=== PATIENT | male | born 1930 | race Caucasian/White ===

== ENCOUNTER 2016-10-02 10:07 | Outpatient (CLI) | payer MEDICARE, BC | END 2016-10-02 10:08 | disposition home or self-care (01) | DX: Z51.81 Encounter for therapeutic drug level monitoring (principal); E78.5 Hyperlipidemia, unspecified ==

== ENCOUNTER 2017-10-06 08:00 | Outpatient (CLI) | payer MEDICARE, BC ==
[2017-10-06 12:59] LABS: ALBUMIN 3.7 g/dL (3.2-5.5); ALBUMIN/GLOBULIN RATIO 1.4 (1.0-2.2); ALKALINE PHOSPHATASE 74 IU/L (42-121); ALT ALANINE AMINOTRANSFERASE 15 IU/L (10-60); AST ASPARTATE AMINOTRANSFERASE 15 IU/L (10-42); BILIRUBIN,TOTAL 0.7 mg/dL (0.2-1.0); BUN - BLOOD UREA NITROGEN 12 mg/dL (6-20); CALCIUM 8.7 mg/dL (8.5-10.3); CARBON DIOXIDE - CO2 27 mmol/L (21-32); CHLORIDE 106 mmol/L (101-111); CHOL/HDL RATIO 3.9 (<5.0); CHOLESTEROL 163 mg/dL; CREATININE 0.9 mg/dL (0.6-1.2); GFR - MDRD 80 (>89); GLUCOSE 100 mg/dL (70-100); HDL CHOLESTEROL 42 mg/dL; LDL CHOLESTEROL,CALCULATED 93 mg/dL; LDL/HDL RATIO 2.2 (<3.6); SODIUM 138 mmol/L (135-145); TOTAL PROTEIN 6.4 g/dL (6.7-8.2); VLDL CHOLESTEROL 28 mg/dL
[2017-10-06 13:00] LABS: BASOPHILS # (AUTO) 0.1 10^3/uL (0.0-0.1); BASOPHILS % (AUTO) 1.4 %; EOSINOPHILS # (AUTO) 0.1 10^3/uL (0.0-0.7); EOSINOPHILS % (AUTO) 0.7 %; LYMPHOCYTES # (AUTO) 2.8 10^3/uL (1.5-3.5); LYMPHOCYTES % (AUTO) 38.2 %; MEAN CORPUSCULAR HEMOGLOBIN 29.7 pg (27.0-31.0); MEAN CORPUSCULAR HGB CONC 31.8 g/dL (32.0-36.0); MEAN CORPUSCULAR VOLUME 93.6 fL (80.0-94.0); MEAN PLATELET VOLUME 9.5 fL (7.4-11.4); MONOCYTES # (AUTO) 0.2 10^3/uL (0.0-1.0); MONOCYTES % (AUTO) 2.6 %; NEUTROPHILS # (AUTO) 4.2 10^3/uL (1.5-6.6); NEUTROPHILS % (AUTO) 57.1 %; PLT - PLATELET COUNT 213 10^3/uL (130-450); RED BLOOD COUNT 5.04 10^6/uL (4.70-6.10); RED CELL DISTRIBUTION WIDTH 14.4 % (12.0-15.0); WHITE BLOOD COUNT 7.4 x10^3/uL (4.8-10.8)
== END 2017-10-06 08:01 | disposition home or self-care (01) ==
LOC: LAB.WCP 08:00
PROVIDERS: ATTEND Family Medicine
DX: K27.9 Peptic ulcer, site unspecified, unspecified as acute or chronic, without hemorrhage or perforation (principal); I10 Essential (primary) hypertension
CPT/HCPCS: 36415; 80053; 80061; 83721; 85025

== ENCOUNTER 2017-10-28 10:44 | Outpatient (CLI) | payer MEDICARE, BC ==
[~2017-10-28 10:44] MED LIST: REGADENOSON 0.4 MG/5 ML SYRINGE IVP ONE
[2017-10-28] MEDS ORDERED: REGADENOSON 0.4 MG/5 ML SYRINGE IVP ONE (14:56)
[2017-10-28 17:23] VITALS: BP 128/70
--- NOTE | 2017-10-28 18:21 | CARDIAC PROCEDURE NOTE ---
DATE OF SERVICE: 10/28/2017 Physician: CARMEN Wood DATE OF SERVICE: 10/28/2017. PRIMARY CARE PHYSICIAN: Dr. 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 CARDIAC RISK FACTORS: Include age, hypertension, hyperlipidemia and smoker. No prior cardiac procedures. CLINICAL HISTORY: An 86-year-old male without known coronary artery disease. INITIAL RESTING VITAL SIGNS: BP 128/70, heart rate 84, height 68 inches, weight 172, BMI 26.2. PROCEDURE AND FINDINGS: The patient identity and date verified, consent signed. Pharmacologic medication check. Pharmacologic stress testing was performed with Lexiscan at a dose of 0.4 mg over 10 seconds. The heart rate increased to 114 beats per minute, from the infusion. The patient developed a mild sensation of tightened breathing related to the infusion and it resolved spontaneously. The resting ECG demonstrated normal sinus rhythm with a left bundle branch block and first-degree AV block. Unable to assess left bundle branch block for ECG changes. FINAL IMPRESSION: 1. Nondiagnostic electrocardiogram for ischemia in the setting of vasodilator stress. 2. Nondiagnostic stress test for angina. 3. Await myocardial perfusion report. TD: 10/28/2017 18:19 MTDAlesia
--- NOTE | 2017-10-29 10:49 | Nuclear Medicine Report ---
EXAM: NUCLEAR MEDICINE MYOCARDIAL PERFUSION STRESS AND REST EXAM DATE: 10/28/2017 03:00 PM. CLINICAL HISTORY: Left bundle branch block. COMPARISON: None. TECHNIQUE: Patient given 10.7 mCi technetium 99m sestamibi IV for the rest portion of the study. Non- gated cardiac SPECT scintigraphy performed with multiplanar reformats. After an appropriate delay, patient given 0.4 mg Lexiscan IV for pharmacologic stress. Next, patient given 41.3 mCi technetium 99m sestamibi IV. Cardiac gated SPECT scintigraphy performed with multiplan ar reformats, wall motion analysis, and left ventricular ejection fraction estimation. FINDINGS: There is a large focus of moderately decreased activity in the inferior wall, extending inferoseptal and from apex to base, fixed on stress and rest. Moderate focus of moderate decreased activity in the anterior septal region from apex to mid ventricl e. Moderate decreased activity of the apex, fixed. No reversible stress-related perfusion defects are seen. Diffuse moderate to severe hypokinesis. Left ventricular ejection fraction estimated at 24%. IMPRESSION: 1. Large fixed defect inferior wall involving apex and moderate fixed defect in the anterior septal r egion. Differential includes infarct versus hibernating myocardium. 2. Left ventricular ejection fraction estimated at 24%. [facility] Referring Provider Line: [phone] SITE ID: [id number]
== END 2017-10-28 10:45 | disposition home or self-care (01) ==
LOC: DI 10:44
PROVIDERS: ATTEND Family Medicine
DX: I44.7 Left bundle-branch block, unspecified (principal); R94.39 Abnormal result of other cardiovascular function study; I10 Essential (primary) hypertension; E78.5 Hyperlipidemia, unspecified; F17.200 Nicotine dependence, unspecified, uncomplicated
CPT/HCPCS: 78452; 93017; A9500; J2785

== ENCOUNTER 2017-12-09 03:20 | Outpatient (CLI) | payer MEDICARE, BC | END 2017-12-09 03:21 | disposition critical access hospital (66) | LOC: EMS 03:20 | PROVIDERS: ATTEND Surgery | DX: R06.00 Dyspnea, unspecified (principal); R07.9 Chest pain, unspecified | CPT/HCPCS: A0425; A0427 ==

== ENCOUNTER 2017-12-09 03:35 | Inpatient (IN) | payer MEDICARE, BC ==
[2017-12-09] MEDS ORDERED: FUROSEMIDE 40 MG/4 ML VIAL IVP STA (03:57)
[2017-12-09 03:59] LABS: VBG BASE EXCESS -6.5 mmol/L (-2 - +2); VBG PH 7.373 (7.31-7.41); VBG PO2 178.5 mmHg (25-47)
[2017-12-09 04:04] LABS: BASOPHILS # (AUTO) 0.2 10^3/uL (0.0-0.1); BASOPHILS % (AUTO) 1.2 %; EOSINOPHILS # (AUTO) 0.1 10^3/uL (0.0-0.7); EOSINOPHILS % (AUTO) 0.7 %; HGB - HEMOGLOBIN 16.6 g/dL (14.0-18.0); LYMPHOCYTES # (AUTO) 4.9 10^3/uL (1.5-3.5); LYMPHOCYTES % (AUTO) 28.9 %; MEAN CORPUSCULAR HEMOGLOBIN 30.4 pg (27.0-31.0); MEAN CORPUSCULAR HGB CONC 33.6 g/dL (32.0-36.0); MEAN CORPUSCULAR VOLUME 90.4 fL (80.0-94.0); MEAN PLATELET VOLUME 8.3 fL (7.4-11.4); MONOCYTES # (AUTO) 0.8 10^3/uL (0.0-1.0); MONOCYTES % (AUTO) 4.7 %; NEUTROPHILS # (AUTO) 10.9 10^3/uL (1.5-6.6); NEUTROPHILS % (AUTO) 64.5 %; PLT - PLATELET COUNT 243 10^3/uL (130-450); RED BLOOD COUNT 5.45 10^6/uL (4.70-6.10); RED CELL DISTRIBUTION WIDTH 13.5 % (12.0-15.0); WHITE BLOOD COUNT 16.8 x10^3/uL (4.8-10.8)
[2017-12-09 04:12] LABS: ALBUMIN 4.2 g/dL (3.2-5.5); ALBUMIN/GLOBULIN RATIO 1.3 (1.0-2.2); BILIRUBIN,TOTAL 0.5 mg/dL (0.2-1.0); CALCIUM 8.7 mg/dL (8.5-10.3); CREATININE 0.9 mg/dL (0.6-1.2); TOTAL PROTEIN 7.4 g/dL (6.7-8.2)
--- NOTE | 2017-12-09 04:20 | XRAY Preliminary Report ---
Exam: XR CHEST 1 VIEW X-RAY IMPRESSION: 1. Borderline heart size with new bilateral infiltrates or pulmonary edema. 2. Possible trace right pleural effusion. [facility] SITE ID: [id number]
--- NOTE | 2017-12-09 04:21 | XRAY Report ---
EXAM: CHEST RADIOGRAPHY EXAM DATE: 12/09/2017 04:10 AM. CLINICAL HISTORY: Shortness of breath. COMPARISON: 09/22/2017. TECHNIQUE: 1 view. FINDINGS: Lungs/Pleura: New bilateral interstitial and airspace opacities. Possible trace right pleural effusio n. No pneumothorax. Mediastinum: Heart size upper normal. Other: None. IMPRESSION: 1. Borderline heart size with new bilateral infiltrates or pulmonary edema. 2. Possible trace right pleural effusion. [facility] Referring Provider Line: [phone] SITE ID: [id number]
[2017-12-09] MEDS ORDERED: AZITHROMYCIN INJ 500 MG in SODIUM CHLORIDE 0.9% 250 ML IV STA (04:42)
--- NOTE | 2017-12-09 04:43 | ED Physician Documentation ---
PD HPI DYSPNEA - Stated complaint Stated Complaint: RESP DISTRESS - Chief complaint Chief Complaint: Resp - History obtained from History obtained from: Patient, Family, EMS - History of Present Illness Timing - onset: Today Timing - details: Abrupt onset, Still present Improved by: O2, BiPAP / CPAP, Nitro, Lasix Worsened by: Exertion Associated symptoms: Cough. No: Fever, Chest pain / discomfort Similar symptoms before: No diagnosis Recently seen: Not recently seen - Additional information Additional information: Patient is an 86 year old male with a history of htn and elevated cholesterol who is presenting to the emergency department for shortness of breath. According to patient and family tonight the patient called out to his daughter because he was having a hard time breathing. Family called ems. when ems arrived the patient was hypoxic in the high 70s. Patient was treated with nitro paste, lasix and started on bipap which brought his oxygenation up to the mid 90s. Daughter's report that recently the patient was found to have a bundle branch block and was starting to work with is doctor and was supposed to have an echo scheduled soon. Review of Systems Constitutional: denies: Fever, Myalgias Eyes: reports: Reviewed and negative Ears: reports: Reviewed and negative Nose: denies: Rhinorrhea / runny nose, Congestion Throat: denies: Sore throat Cardiac: denies: Chest pain / pressure Respiratory: reports: Dyspnea. denies: Cough, Wheezing GI: denies: Nausea, Vomiting : reports: Reviewed and negative Skin: denies: Rash, Lesions Musculoskeletal: denies: Extremity pain, Extremity swelling Neurologic: denies: Generalized weakness, Focal weakness Immunocompromised: denies: Immunocompromised PD PAST MEDICAL HISTORY - Past Medical History Cardiovascular: Hypertension, High cholesterol, Other Respiratory: None Endocrine/Autoimmune: None GI: Ulcers, Hepatitis : Frequency Psych: None, Claustrophobia Musculoskeletal: Osteoarthritis Derm: None - Past Surgical History Past Surgical History: Yes General: Bowel surgery - Present Medications Home Medications: Ambulatory Orders Medication Instructions Recorded Confirmed Lisinopril 20 mg DAILY 07/20/13 08/05/15 Lovastatin 20 mg ORAL DAILY 07/20/13 08/05/15 Losartan [Cozaar] 50 mg ORAL DAILY 08/05/15 08/05/15 Omeprazole 40 mg ORAL DAILY 08/05/15 08/05/15 Tamsulosin [Flomax] 1 tab ORAL DAILY 08/05/15 08/05/15 - Allergies Allergies/Adverse Reactions: Allergies Allergy/AdvReac Type Severity Reaction Status Date / Time Penicillins Allergy Mild Rash Verified 12/09/17 03:48 venom-honey bee Allergy Rash Verified 12/09/17 03:48 [bee venom (honey bee)] banana [Banana] AdvReac nausea/bloa Verified 12/09/17 03:48 ting - Social History Does the pt smoke?: No Smoking Status: Former smoker Does the pt drink ETOH?: No Does the pt have substance abuse?: No - Immunizations Immunizations are current?: Yes - POLST Patient has POLST: No PD ED PE NORMAL - Vitals Vital signs reviewed: Yes - General General: Alert and oriented X 3 - HEENT HEENT: Atraumatic - Cardiac Cardiac: RRR, No murmur - Abdomen Abdomen: Soft - Derm Derm: Normal color, No rash - Extremities Extremities: No deformity, No edema, No calf tenderness / cord - Neuro Neuro: Alert and oriented X 3, No motor deficit, Normal speech Eye Opening: Spontaneous Motor: Obeys Commands Verbal: Oriented GCS Score: 15 PD ED PE EXPANDED - General General: Alert, In distress - HEENT HEENT: Dry mucous membranes - Neck Neck: JVD present - Respiratory Respiratory: Distress, Labored, Rales, Right upper lobe, Right middle lobe, Right lower lobe, Left upper lobe, Left lower lobe Results - Vitals Vitals: Vital Signs - 24 hr 12/09/17 12/09/17 12/09/17 03:35 03:37 04:01 Temperature 36 C L Heart Rate 107 H 107 H 93 Respiratory 19 21 Rate Blood Pressure 159/93 H 114/73 O2 Saturation 99 99 12/09/17 12/09/17 12/09/17 04:10 04:25 04:28 Temperature Heart Rate 90 82 80 Respiratory 21 Rate Blood Pressure 114/66 O2 Saturation 94 Oxygen O2 Source BIPAP - EKG (time done) 0344 Rate: Rate (enter#) (107) Rhythm: Sinus tachycardia [place]: Normal Intervals: LBBB Ischemia: Normal ST segments Other comments: Other comments (does not meet scarbossa criteria for acute ND) Compare to prior EKG: Changed from prior EKG - Labs Labs: Laboratory Tests 12/09/17 12/09/17 12/09/17 03:50 03:50 03:50 WBC 16.8 H RBC 5.45 Hgb 16.6 Hct 49.3 MCV 90.4 MCH 30.4 MCHC 33.6 RDW 13.5 Plt Count 243 MPV 8.3 Neut # 10.9 H Lymph # 4.9 H [place] # 0.8 Eos # 0.1 Baso # 0.2 H Absolute Nucleated RBC 0.01 Nucleated RBC % 0.0 VBG pH VBG pCO2 VBG pO2 VBG HCO3 VBG Total CO2 VBG O2 Saturation VBG Base Excess Sodium 141 Potassium 4.0 Chloride 109 Carbon Dioxide 24 Anion Gap 8.0 BUN 20 Creatinine 0.9 Estimated GFR (MDRD) 80 L Glucose 232 H Calcium 8.7 Total Bilirubin 0.5 AST 17 ALT 21 Alkaline Phosphatase 108 Troponin I < 0.04 B-Natriuretic Peptide Total Protein 7.4 Albumin 4.2 Globulin 3.2 Albumin/Globulin Ratio 1.3 Lipase 24 12/09/17 12/09/17 03:50 03:56 WBC RBC Hgb Hct MCV MCH MCHC RDW Plt Count MPV Neut # Lymph # [place] # Eos # Baso # Absolute Nucleated RBC Nucleated RBC % VBG pH 7.373 VBG pCO2 30.0 L VBG pO2 178.5 H VBG HCO3 17.1 L VBG Total CO2 18.0 L VBG O2 Saturation 99.4 H VBG Base Excess -6.5 L Sodium Potassium Chloride Carbon Dioxide Anion Gap BUN Creatinine Estimated GFR (MDRD) Glucose Calcium Total Bilirubin AST ALT Alkaline Phosphatase Troponin I B-Natriuretic Peptide 340 H Total Protein Albumin Globulin Albumin/Globulin Ratio Lipase - Rads (name of study) chest x-ray Radiology: Final report received (bilateral infiltrates/pulmonary edema) PD MEDICAL DECISION MAKING - ED course Complexity details: reviewed old records, reviewed results, re-evaluated patient , considered differential, d/w patient, d/w family, d/w creative consultant ED course: Patient was seen and examined at bedside. Patient was already on bipap. ekg was performed which showed lbbb. IV access was gained and labs were drawn. Patient was treated with additional lasix. Patient's pressure started to drop slightly so the nitro paste was removed. Patient was tolerating the bipap well and was comfortable. patient's chest x-ray showed diffuse edema and possible infiltrates. Patient did have leukocytosis so azithromycin was ordered. Hospitalist was contacted and the case was discussed with her. Patient's wishes were also discussed with the patient and his family and a polst form was signed and patient was DNR/DNI. Patient was admitted to the ICU. - Critical Care Time(min): 30 Time Includes: Direct patient care, Review records, Reassess patient, Document care, Coordinate care, Family consult for tx dec Data interpretation: Labs, Pulse ox, CXR, Prior EKG Departure - Departure Disposition: 66 [facility] DC/Xfer Clinical Impression: Congestive heart failure, Pneumonia, Respiratory failure Condition: Critical
[2017-12-09] MEDS ORDERED: ONDANSETRON 4 MG/2 ML VIAL IVP PRN (06:29)
[2017-12-09] MEDS ORDERED: MORPHINE 2 MG/ML SYRINGE IVP PRN (06:29)
[2017-12-09] MEDS ORDERED: ACETAMINOPHEN 325 MG TABLET PO PRN (06:29)
[2017-12-09 06:52] LABS: HGB - HEMOGLOBIN 14.9 g/dL (14.0-18.0); MEAN CORPUSCULAR HEMOGLOBIN 29.5 pg (27.0-31.0); MEAN CORPUSCULAR HGB CONC 32.8 g/dL (32.0-36.0); MEAN CORPUSCULAR VOLUME 89.8 fL (80.0-94.0); MEAN PLATELET VOLUME 8.1 fL (7.4-11.4); RED BLOOD COUNT 5.07 10^6/uL (4.70-6.10); RED CELL DISTRIBUTION WIDTH 13.3 % (12.0-15.0); WHITE BLOOD COUNT 13.4 x10^3/uL (4.8-10.8)
[2017-12-09] MEDS ORDERED: HEPARIN 25000UNITS/500ML (D5W) 25,000 UNIT/500 ML BAG IV SCH (07:00)
--- NOTE | 2017-12-09 07:50 | HISTORY & PHYSICAL EXAMINATION ---
DATE OF SERVICE: 12/09/2017 Physician: Nalini Lama MD CHIEF COMPLAINT: Sudden onset of chest pain or shortness of breath. SOURCE OF HISTORY: History was provided mostly by the patient's 2 daughters at the bedside. One daughter lives with the patient. The patient confirmed the below dictated details. HISTORY OF PRESENT ILLNESS: The patient is an 86-year-old white male with past medical history of hypertension, benign prostatic hypertrophy, dyslipidemia, and history of remote colon cancer status post partial colectomy. He has 2 daughters, 1 lives with him, and they describe the patient as physically active , having his full mental capacities, usually gardening, walking his dog every day, being fully functional. They mentioned that in September 2017, many family members had upper respiratory infection-like symptoms and the patient had difficulty getting over this cold-like illness. It took him several weeks to get better, but finally he recovered. Subsequently, he went for a routine physical exam and saw his primary care physician Clotilde Pike. He underwent a routine EKG, which showed left bundle branch block, which was new. Notably, the patient and the daughters deny previous symptoms of shortness of breath, chest pain, decreased exercise tolerance or anything other than usual. After the abnormal EKG, the patient was sent for an outpatient stress test. He underwent treadmill with nuclear medicine images in October 2017. Reading the record in our electronic medical record, the patient was found with large fixed perfusion defects. In addition, he was found with low ejection fraction estimated around 24%. Therefore, he was referred to see a tar worker and was scheduled for an echocardiogram, which was not yet completed. Again, the patient continued basically asymptomatic. His regular medications included losartan and Flomax. Metoprolol was started after the abnormal stress test. He was in his usual state of health in the morning of 12/08/2017, and went on with his usual activities all day. Overnight at 3 a.m. on 12/09/2017, he woke his daughter crying out for help. He experienced sudden onset intense sharp chest pain, which worried him enough to tell his daughter to call an ambulance immediately. At the same time, he became profoundly short of breath. Per EMS, he was found in critically ill condition. His oxygen saturation was 70% on room air, notably he has never been oxygen dependent in the past. His blood pressure was elevated around 170 systolic. Per EMS report, he was found bradycardic and, therefore, pacer pads were placed. He was started on BiPAP, given nitroglycerin , and was given IV Lasix as well. It is also reported by his daughter that besides the chest pain and the shortness of breath, the patient was also cold, clammy and had shaking jerking movements of his extremities. He appeared with decreased level of consciousness for a short period of time. By the time the patient arrived to the ER, he improved, and when I interviewed him he could answer my questions in short sentences. During the ER stay, he did not have abnormal rhythm of his heart. His blood pressure was borderline low, around 100 systolic. The patient was afebrile. His ER workup showed left bundle branch block. There was also elevated white blood cell count, around 16. His troponin was negative, although notably the patient' s acute chest pain started at 3 a.m. and troponin was taken around 4 a.m. Subsequently, another troponin was repeated at 6 a.m., per my request, and that remained negative as well. BNP was slightly elevated around 340. Renal function was normal. Chemistry panel unremarkable. Chest x-ray showed bilateral infiltrates consistent with congestive heart failure. Notably, the ER physician, Dr. Farnsworth, discussed code status with the patient and with his daughters and a DO NOT RESUSCITATE POLST form was filled out. When I spoke with the patient and the daughters, the second troponin was not yet back and my opinion was that this patient had an acute cardiac event leading to congestive heart failure and decompensation and, per my opinion, the risk to rule in for acute coronary syndrome was be high. Therefore, it was discussed whether intervention would be desired by the patient and by the family. At that time, code status was rediscussed and the daughters actually changed their opinion or maybe they misunderstood the previous code status discussion thinking about a terminal illness rather than sudden events. They told me that in case of emergency, they would actually want this patient to be resuscitated and for a procedure, intubation or cardioversion would also be acceptable. They would definitely want this patient to be evaluated by a tar worker, and they would want him to undergo reasonable interventions such as cardiac catheterization if needed. They would also want to pursue establishing the diagnosis and discuss treatment options for any cardiac condition the patient might have. Based on my discussion with the patient and the family, the patient actually should be FULL CODE STATUS; in case he would decline during his hospital course , then code status limitation would be considered. The family and the patient would also desire transfer to a higher level of care and specialist consultation if he would need cardiology consult such as if his troponin would turn positive. PAST MEDICAL HISTORY 1. Hypertension. 2. Dyslipidemia. 3. Benign prostatic hypertrophy. 4. Recently diagnosed coronary artery disease with abnormal stress test, left bundle branch block, and recently diagnosed congestive heart failure with low ejection fraction/systolic dysfunction. 5. History of gastrointestinal bleed back in 2012 due to gastric ulcer, which was treated. 6. History of colon cancer, status post partial colectomy in 1993. OUTPATIENT MEDICATIONS Include: 1. Metoprolol. 2. Losartan. 3. Flomax. Notably, medications are not updated in the electronic medical record. The current list shows omeprazole and lovastatin. Actually, I question whether Lovastatin is the same as the family mentioned to be losartan. We are awaiting confirmation and medication reconciliation. FAMILY HISTORY: Reviewed, noncontributory. PRIMARY CARE PHYSICIAN: Clotilde Pike. CODE STATUS: FULL CODE at this point. Please see discussion above. SOCIAL HISTORY: The patient does not smoke. He is fully functional with instrumental activities of daily living. Lives with his daughter. REVIEW OF SYSTEMS: Please see pertinent positives listed above in history of present illness. A complete 12-point review was otherwise negative. PHYSICAL EXAMINATION VITAL SIGNS: Blood pressure 100/60, heart rate in the 70s, oxygen saturation 97 % on BiPAP with respiratory rate of 15 at 40% FiO2. Temperature afebrile. GENERAL: The patient is a well-developed, elderly male who appeared without distress, on BiPAP. RESPIRATORY: Crackles at bases, but reasonably good air entry on BiPAP. CARDIOVASCULAR: S1, S2 regular. Questionable systolic murmur, murmur was actually hard to appreciate on BiPAP due to transmitted airway sounds. ABDOMEN: Soft, benign, nontender. Normal bowel sounds. LYMPHATIC: No peripheral lymphedema. NEUROLOGIC: Lethargic, but easily arousable, oriented, neurologically nonfocal. PSYCHIATRIC: Cooperative, pleasant to talk to. SKIN: Without jaundice or pallor. MUSCULOSKELETAL: Atraumatic. ASSESSMENT AND PLAN, ACTIVE ISSUES/DIAGNOSES 1. Acute decompensated systolic heart failure with recently abnormal stress test showing fixed perfusion defects and low ejection fraction, also with underlying left bundle branch block. 2. Possible cardiac arrhythmia with bradycardia per Emergency Medical Services. 3. Hypoxia/hypoxic respiratory failure secondary to congestive heart failure and pulmonary edema, most likely flash pulmonary edema in the setting of acute cardiac event. 4. Initial troponin was negative. Electrocardiogram showed left bundle branch block, therefore, acute change could not be appreciated. Although the second troponin remained negative, it was only 3 hours after the acute chest pain and decompensation. Therefore, I think there is still high risk that this patient could rule in for acute coronary syndrome and will need to be transferred to higher level of care requiring cardiology consult. 5. Code status is FULL CODE; however, on admission this was discussed several times, first by the emergency room physician and secondly by me and per my discussion with the patient and his daughters, the patient would consider aggressive intervention in case of emergency, including cardiology evaluation and angiography. PLAN AND ORDERS 1. Patient is getting admitted to the ICU, requiring noninvasive ventilation on BiPAP. He is getting admitted as inpatient. He will require more than 2 days hospital stay and at this point it is possible that his condition could even worsen and he might require transfer to higher level of care. For now, his blood pressure is borderline low; therefore, he will not need or tolerate nitrate. Currently, he is chest pain free. I will start IV heparin cardiac dose and monitor the patient closely. We will continue telemetry monitoring and will continue cycling troponins. I am awaiting medication reconciliation, will continue metoprolol. Due to congestive heart failure exacerbation, besides the noninvasive ventilation, we will also continue IV Lasix; however, the patient already received 2 doses of IV Lasix. Therefore, I will defer to the morning team to order an additional dose later. 2. Deep venous thrombosis prophylaxis not needed as the patient is on cardiac dose heparin. 3. Notably, the patient had history of prior gastrointestinal bleed due to a gastric ulcer; however, the ulcer was treated and it was more than 5 years ago. We will monitor the patient. If any bleeding complication, we will obviously discontinue heparin drip, but at this point the benefit of anticoagulation outweighs the possible risk. 4. Regarding additional issues, as the patient has low ejection fraction, he might be a candidate for AICD placement as well and for that he would also need cardiology consult. For now, I will check an echocardiogram to assess his ejection fraction as nuclear medicine images might not be accurate. The echocardiogram will provide information regarding possible valvular abnormality as well. 5. Further plan will depend on the clinical course. ATTESTATION: I certify in good vinayak that this patient will be hospitalized for more than 48 hours; however, will be discharged or transferred to another facility in less than 96 hours. TIME SPENT: Critical care time spent with this patient was 85 minutes, and that included about 20 minutes of coordination of care regarding code status and other issues. Please see documentation above. cc: Clotilde Pike MD TD: 12/09/2017 07:49 MTDD
[2017-12-09] MEDS ORDERED: HEPARIN 5,000 UNIT/ML VIAL IVP ONE (08:00)
[2017-12-09] MEDS: METOPROLOL TARTRATE 25 MG TABLET PO SCH ×3 (08:20→20:53)
[2017-12-09 08:54] LABS: ABG BASE EXCESS -4.3 mmol/L (-2.0-3.0); ABG HCO3 21.9 mmol/L (22.0-26.0); ABG OXYGEN SATURATION 99 % (94-98); ABG PCO2 44 mmHg (34-45); ABG PH 7.32 (7.35-7.45); ABG PO2 125 mmHg (80-100); ABG TCO2 23.3 MMOL/L (21.0-29.0); ALLEN TEST POSITIVE
[2017-12-09] MEDS ORDERED: FAMOTIDINE 20 MG/50 ML 50 ML IV SCH (09:00)
[2017-12-09] MEDS: POLYETHYLENE GLYCOL 3350 17 GM PACKET PO SCH (09:28)
[2017-12-09] MEDS: SODIUM CHLORIDE FLUSH 0.9% 10 ML SYRINGE IVP SCH ×2 (09:29→17:13)
[2017-12-09 09:36] LABS: HGB - HEMOGLOBIN 15.1 g/dL (14.0-18.0); MEAN CORPUSCULAR HEMOGLOBIN 30.2 pg (27.0-31.0); MEAN CORPUSCULAR HGB CONC 33.7 g/dL (32.0-36.0); MEAN CORPUSCULAR VOLUME 89.4 fL (80.0-94.0); MEAN PLATELET VOLUME 8.2 fL (7.4-11.4); RED CELL DISTRIBUTION WIDTH 13.5 % (12.0-15.0); WHITE BLOOD COUNT 12.2 x10^3/uL (4.8-10.8)
[2017-12-09] MEDS: FUROSEMIDE 40 MG/4 ML VIAL IVP SCH (14:12)
[2017-12-09] MEDS: SODIUM CHLORIDE FLUSH 0.9% 10 ML SYRINGE IVP PRN (21:17)
[2017-12-10] MEDS: SODIUM CHLORIDE FLUSH 0.9% 10 ML SYRINGE IVP SCH ×3 (01:03→20:47)
[2017-12-10] MEDS: FUROSEMIDE 40 MG/4 ML VIAL IVP SCH (05:45)
[2017-12-10] MEDS: SODIUM CHLORIDE FLUSH 0.9% 10 ML SYRINGE IVP PRN (05:45)
[2017-12-10] MEDS ORDERED: LISINOPRIL 5 MG TABLET PO SCH (08:00)
[2017-12-10] MEDS: METOPROLOL TARTRATE 25 MG TABLET PO SCH ×2 (09:38→20:46)
[2017-12-10] MEDS: POLYETHYLENE GLYCOL 3350 17 GM PACKET PO SCH (09:39)
[2017-12-10 10:24] LABS: BASOPHILS # (AUTO) 0.1 10^3/uL (0.0-0.1); BASOPHILS % (AUTO) 1.2 %; EOSINOPHILS % (AUTO) 0.3 %; HGB - HEMOGLOBIN 14.7 g/dL (14.0-18.0); LYMPHOCYTES # (AUTO) 2.3 10^3/uL (1.5-3.5); MEAN CORPUSCULAR HEMOGLOBIN 30.2 pg (27.0-31.0); MEAN CORPUSCULAR HGB CONC 34.1 g/dL (32.0-36.0); MEAN CORPUSCULAR VOLUME 88.7 fL (80.0-94.0); MEAN PLATELET VOLUME 7.7 fL (7.4-11.4); MONOCYTES # (AUTO) 0.5 10^3/uL (0.0-1.0); MONOCYTES % (AUTO) 6.2 %; NEUTROPHILS # (AUTO) 5.8 10^3/uL (1.5-6.6); NEUTROPHILS % (AUTO) 66.3 %; PLT - PLATELET COUNT 200 10^3/uL (130-450); RED BLOOD COUNT 4.87 10^6/uL (4.70-6.10); RED CELL DISTRIBUTION WIDTH 13.3 % (12.0-15.0); WHITE BLOOD COUNT 8.7 x10^3/uL (4.8-10.8)
[2017-12-10 10:40] LABS: ALBUMIN 3.9 g/dL (3.2-5.5); ALBUMIN/GLOBULIN RATIO 1.5 (1.0-2.2); ALKALINE PHOSPHATASE 85 IU/L (42-121); ALT ALANINE AMINOTRANSFERASE 14 IU/L (10-60); AST ASPARTATE AMINOTRANSFERASE 15 IU/L (10-42); BUN - BLOOD UREA NITROGEN 27 mg/dL (6-20); CALCIUM 8.7 mg/dL (8.5-10.3); CARBON DIOXIDE - CO2 31 mmol/L (21-32); CHLORIDE 100 mmol/L (101-111); CREATININE 0.9 mg/dL (0.6-1.2); GFR - MDRD 80 (>89); GLUCOSE 107 mg/dL (70-100); MAGNESIUM 2.2 mg/dL (1.7-2.8); PHOSPHORUS 2.7 mg/dL (2.5-4.6); SODIUM 140 mmol/L (135-145); TOTAL PROTEIN 6.5 g/dL (6.7-8.2)
[2017-12-10] MEDS: FUROSEMIDE 40 MG TABLET PO SCH (12:24)
--- NOTE | 2017-12-10 16:29 | PROVIDER PROGRESS NOTE ---
Assessment/Plan - Problem List (1) Acute respiratory failure with hypoxia Assessment/Plan: Likely secondary to flash pulmonary edema due to acute systolic heart failure Patient presented with significant hypoxia and required BiPAP in the intensive care unit on presentation Patient was diuresed with IV Lasix and had significant improvement Hypoxic respiratory failure appears to be resolving as patient is now on room air (2) Acute systolic heart failure, first episode Assessment/Plan: Patient presented with acute respiratory failure with hypoxia Echocardiogram done yesterday shows ejection fraction of 30% with grade 1 diastolic dysfunction Patient was initially on BiPAP and has had significant improvement with IV Lasix 40 mg twice daily and now is on room air. Plan: Continue Lasix but change to p.o. Lasix 40 mg twice daily Continue metoprolol and start lisinopril Transfer to [facility] Fluid restriction Telemetry monitoring Patient will follow up with cardiology as an outpatient. (3) Bradycardia Assessment/Plan: On presentation patient was bradycardic however despite continuing metoprolol the patient's heart rate is now in normal range. Resolved (4) CAD (coronary artery disease) Qualifiers: Coronary Disease-Associated Artery/Lesion type: unspecified vessel or lesion type [place] vs. transplanted heart: [place] heart Associated angina: without angina Qualified Code(s): I25.10 - Atherosclerotic heart disease of [place] coronary artery without angina pectoris Assessment/Plan: Patient had a recent stress test which showed a large fixed defect in the inferior wall the involving apex and moderate fixed defect in the anterior septal region. Patient also found to have congestive heart failure with ejection fraction of 30 %. Patient on aspirin, metoprolol, lovastatin Serial troponins were negative on presentation Patient will continue to follow-up with cardiology once he is stable and discharge. (5) Hypertension Qualifiers: Hypertension type: essential hypertension Qualified Code(s): I10 - Essential (primary) hypertension Assessment/Plan: Patient has history of hypertension Blood pressure is controlled Continue home blood pressure medications Monitor - Current Meds Current Meds: Current Medications Generic Name Dose Route Start Last Admin Trade Name Freq PRN Reason Stop Dose Admin Furosemide 40 mg 12/10/17 12:00 12/10/17 12:24 Lasix PO 40 mg BIDDIURETIC ROGELIO Administration Metoprolol Tartrate 12.5 mg 12/09/17 08:00 12/10/17 09:38 Lopressor PO 12.5 mg BID ROGELIO Administration Polyethylene Glycol 17 gm 12/09/17 09:00 12/10/17 09:39 Miralax PO Not Given DAILY ROGELIO Sodium Chloride 10 ml 12/09/17 06:29 12/10/17 05:45 Normal Saline Flush 0.9% IVP 10 ml PRN PRN Administration NEEDED PER PROVIDER ORDERS Sodium Chloride 10 ml 12/09/17 09:00 12/10/17 09:39 Normal Saline Flush 0.9% IVP 10 ml [id number],1700 ROGELIO Administration - Lab Result Lab results reviewed: Yes [place] Bone Diagrams: 12/10/17 10:18 12/10/17 10:18 - EKG Results EKG Interpreted Independently: Yes - Diagnostic Imaging Results Diagnostic Imaging Results: Final report reviewed - Additional Planning Condition/Complexity: Guarded My Orders: My Active Orders 12/10/17 10:11 Vital Signs [RC] QSHIFT 12/10/17 12:00 Furosemide [Lasix] 40 mg PO BIDDIURETIC 12/11/17 05:00 BNP - B-NATRIURETIC PEPTIDE [IAI] DAILYLAB CBC - COMP BLD CT W/AUTO DIFF [HEME] DAILYLAB CMP, RFLX TO IONIZED CA IF [CHEM] DAILYLAB MAGNESIUM [CHEM] DAILYLAB PHOSPHORUS [CHEM] DAILYLAB 12/11/17 09:00 Lisinopril [Zestril] 2.5 mg PO DAILY 12/12/17 05:00 BNP - B-NATRIURETIC PEPTIDE [IAI] DAILYLAB CBC - COMP BLD CT W/AUTO DIFF [HEME] DAILYLAB CMP, RFLX TO IONIZED CA IF [CHEM] DAILYLAB MAGNESIUM [CHEM] DAILYLAB PHOSPHORUS [CHEM] DAILYLAB 12/13/17 05:00 BNP - B-NATRIURETIC PEPTIDE [IAI] DAILYLAB CBC - COMP BLD CT W/AUTO DIFF [HEME] DAILYLAB CMP, RFLX TO IONIZED CA IF [CHEM] DAILYLAB MAGNESIUM [CHEM] DAILYLAB PHOSPHORUS [CHEM] DAILYLAB 12/14/17 05:00 BNP - B-NATRIURETIC PEPTIDE [IAI] DAILYLAB CBC - COMP BLD CT W/AUTO DIFF [HEME] DAILYLAB CMP, RFLX TO IONIZED CA IF [CHEM] DAILYLAB MAGNESIUM [CHEM] DAILYLAB PHOSPHORUS [CHEM] DAILYLAB Plan Discussed with:: Patient, Family Time Spent: 31-60 minutes Subjective - Subjective Patient Reports: Feeling Better, Resting Comfortably (Patient states shortness of breath is much better. He walked to the bathroom without difficulties. He denies any chest pain.) Objective Vital Signs: Vital Signs - 24 hr 12/09/17 12/09/17 12/09/17 17:00 18:00 19:00 Temperature Heart Rate [ 70 65 68 Monitoring electrodes] Respiratory 15 13 17 Rate Blood Pressure Blood Pressure 112/71 107/59 L 113/63 [Left Brachial artery] O2 Saturation 99 100 97 12/09/17 12/09/17 12/09/17 20:00 20:53 21:00 Temperature 36.9 C Heart Rate [ 66 67 Monitoring electrodes] Respiratory 19 20 Rate Blood Pressure 119/59 L Blood Pressure 119/59 L 126/61 [Left Brachial artery] O2 Saturation 98 92 12/09/17 12/09/17 12/10/17 22:00 23:00 00:00 Temperature 36.9 C Heart Rate [ 61 61 65 Monitoring electrodes] Respiratory 20 15 16 Rate Blood Pressure Blood Pressure 98/65 90/39 L 106/51 L [Left Brachial artery] O2 Saturation 97 96 98 12/10/17 12/10/17 12/10/17 01:00 02:00 03:00 Temperature Heart Rate [ 65 57 L 63 Monitoring electrodes] Respiratory 17 14 16 Rate Blood Pressure Blood Pressure 109/57 L 102/53 L 94/50 L [Left Brachial artery] O2 Saturation 97 98 98 12/10/17 12/10/17 12/10/17 04:00 05:00 06:00 Temperature 36.9 C Heart Rate [ 62 56 L 56 L Monitoring electrodes] Respiratory 16 15 15 Rate Blood Pressure Blood Pressure 115/60 109/51 L 125/70 [Left Brachial artery] O2 Saturation 98 98 99 12/10/17 12/10/17 12/10/17 06:55 08:00 09:00 Temperature 36.9 C Heart Rate [ 61 63 75 Monitoring electrodes] Respiratory 15 18 22 Rate Blood Pressure Blood Pressure 119/61 116/54 L [Left Brachial artery] O2 Saturation 98 90 L 90 L 12/10/17 12/10/17 12/10/17 09:38 10:00 16:16 Temperature 37.2 C Heart Rate [ 72 61 Monitoring electrodes] Respiratory 19 20 Rate Blood Pressure 116/54 L Blood Pressure 109/86 H 112/63 [Left Brachial artery] O2 Saturation 92 94 Oxygen O2 Source Room air I&O (Last 24 Hrs): Intake and Output Totals x24h 12/08/17 12/09/17 12/10/17 23:59 23:59 23:59 Intake Total 499.000 750 Output Total 1075 1125 Balance -576.000 -375 General: Alert, Oriented x3, Cooperative, No acute distress HEENT: Atraumatic, PERRLA, EOMI, Mucous membr. moist/pink Neck: Supple, No JVD, No thyromegaly, +2 carotid pulse wo bruit, No LAD Lymphatic: no adenopathy Neuro: Alert, Non Focal, CN 2-12 Grossly Intact, Oriented Times 3 Cardiovascular: Regular rate, Normal S1, Normal S2, Other (Systolic murmur) Respiratory: Chest non-tender, No respiratory distress, Rales (Bases, faint), Other (systolic murmur) Abdomen: Normal bowel sounds, Soft, No tenderness, No hepatospenomegaly Extremities: No clubbing, No cyanosis, Normal pulses, Other (Trace edema, much improved) Skin: No rashes, No breakdown - Results Results: Laboratory Results WBC 8.7 x10^3/uL (4.8-10.8) 12/10/17 10:18 RBC 4.87 10^6/uL (4.70-6.10) 12/10/17 10:18 Hgb 14.7 g/dL (14.0-18.0) 12/10/17 10:18 Hct 43.2 % (42.0-52.0) 12/10/17 10:18 MCV 88.7 fL (80.0-94.0) 12/10/17 10:18 MCH 30.2 pg (27.0-31.0) 12/10/17 10:18 MCHC 34.1 g/dL (32.0-36.0) 12/10/17 10:18 RDW 13.3 % (12.0-15.0) 12/10/17 10:18 Plt Count 200 10^3/uL (130-450) 12/10/17 10:18 MPV 7.7 fL (7.4-11.4) 12/10/17 10:18 Neut # 5.8 10^3/uL (1.5-6.6) 12/10/17 10:18 Lymph # 2.3 10^3/uL (1.5-3.5) 12/10/17 10:18 [place] # 0.5 10^3/uL (0.0-1.0) 12/10/17 10:18 Eos # 0.0 10^3/uL (0.0-0.7) 12/10/17 10:18 Baso # 0.1 10^3/uL (0.0-0.1) 12/10/17 10:18 Absolute Nucleated RBC 0.01 x10^3/uL 12/10/17 10:18 Nucleated RBC % 0.1 /100WBC 12/10/17 10:18 Anti-Xa Level 0.3 U/mL (-0.7) 12/09/17 13:56 Bld Gas Analysis Time 0849 12/09/17 08:45 Sample Site RIGHT RADIAL 12/09/17 08:45 ABG pH 7.32 (7.35-7.45) L 12/09/17 08:45 ABG pCO2 44 mmHg (34-45) 12/09/17 08:45 ABG pO2 125 mmHg (80-100) H 12/09/17 08:45 ABG HCO3 21.9 mmol/L (22.0-26.0) L 12/09/17 08:45 ABG Total CO2 23.3 MMOL/L (21.0-29.0) 12/09/17 08:45 ABG O2 Saturation 99 % (94-98) H 12/09/17 08:45 ABG Base Excess -4.3 mmol/L (-2.0-3.0) L 12/09/17 08:45 Arturo Test POSITIVE 12/09/17 08:45 VBG pH 7.373 (7.31-7.41) 12/09/17 03:56 VBG pCO2 30.0 mmHg (41-51) L 12/09/17 03:56 VBG pO2 178.5 mmHg (25-47) H 12/09/17 03:56 VBG HCO3 17.1 mmol/L (23-28) L 12/09/17 03:56 VBG Total CO2 18.0 mmol/L (24-29) L 12/09/17 03:56 VBG O2 Saturation 99.4 % (60-80) H 12/09/17 03:56 VBG Base Excess -6.5 mmol/L (-2 - +2) L 12/09/17 03:56 O2 Delivery Device BiPAP 12/09/17 08:45 FiO2 40.00 12/09/17 08:45 EPAP 4 cmH2O 12/09/17 08:45 IPAP 12 cmH2O 12/09/17 08:45 Sodium 140 mmol/L (135-145) 12/10/17 10:18 Potassium 3.6 mmol/L (3.5-5.0) 12/10/17 10:18 Chloride 100 mmol/L (101-111) L 12/10/17 10:18 Carbon Dioxide 31 mmol/L (21-32) 12/10/17 10:18 Anion Gap 9.0 (6-13) 12/10/17 10:18 BUN 27 mg/dL (6-20) H 12/10/17 10:18 Creatinine 0.9 mg/dL (0.6-1.2) 12/10/17 10:18 Estimated GFR (MDRD) 80 (>89) L 12/10/17 10:18 Glucose 107 mg/dL (70-100) H 12/10/17 10:18 Calcium 8.7 mg/dL (8.5-10.3) 12/10/17 10:18 Ionized Calcium NO 12/10/17 10:18 Phosphorus 2.7 mg/dL (2.5-4.6) 12/10/17 10:18 Magnesium 2.2 mg/dL (1.7-2.8) 12/10/17 10:18 Total Bilirubin 1.0 mg/dL (0.2-1.0) 12/10/17 10:18 AST 15 IU/L (10-42) 12/10/17 10:18 ALT 14 IU/L (10-60) 12/10/17 10:18 Alkaline Phosphatase 85 IU/L (42-121) 12/10/17 10:18 Troponin I 0.05 ng/mL (<0.49) 12/09/17 13:56 B-Natriuretic Peptide 197 pg/mL (5-100) H 12/10/17 10:18 Total Protein 6.5 g/dL (6.7-8.2) L 12/10/17 10:18 Albumin 3.9 g/dL (3.2-5.5) 12/10/17 10:18 Globulin 2.6 g/dL (2.1-4.2) 12/10/17 10:18 Albumin/Globulin Ratio 1.5 (1.0-2.2) 12/10/17 10:18 Lipase 24 U/L (22-51) 12/09/17 03:50 - Procedures Procedures: Procedures INSPECTION OF LOWER INTESTINAL TRACT, ENDO (08/05/15)
[2017-12-10] MEDS ORDERED: ATORVASTATIN 10 MG TABLET PO SCH (21:00)
[2017-12-11] MEDS: SODIUM CHLORIDE FLUSH 0.9% 10 ML SYRINGE IVP SCH ×2 (03:37→09:34)
[2017-12-11 06:05] LABS: BASOPHILS # (AUTO) 0.1 10^3/uL (0.0-0.1); BASOPHILS % (AUTO) 1.5 %; EOSINOPHILS # (AUTO) 0.1 10^3/uL (0.0-0.7); EOSINOPHILS % (AUTO) 0.7 %; HGB - HEMOGLOBIN 14.4 g/dL (14.0-18.0); LYMPHOCYTES # (AUTO) 3.3 10^3/uL (1.5-3.5); LYMPHOCYTES % (AUTO) 34.5 %; MEAN CORPUSCULAR HEMOGLOBIN 29.3 pg (27.0-31.0); MEAN CORPUSCULAR VOLUME 88.7 fL (80.0-94.0); MEAN PLATELET VOLUME 7.9 fL (7.4-11.4); MONOCYTES # (AUTO) 0.7 10^3/uL (0.0-1.0); MONOCYTES % (AUTO) 7.6 %; NEUTROPHILS # (AUTO) 5.3 10^3/uL (1.5-6.6); NEUTROPHILS % (AUTO) 55.7 %; PLT - PLATELET COUNT 199 10^3/uL (130-450); RED BLOOD COUNT 4.92 10^6/uL (4.70-6.10); RED CELL DISTRIBUTION WIDTH 13.3 % (12.0-15.0); WHITE BLOOD COUNT 9.5 x10^3/uL (4.8-10.8)
[2017-12-11 06:18] LABS: ALBUMIN 3.9 g/dL (3.2-5.5); ALBUMIN/GLOBULIN RATIO 1.5 (1.0-2.2); ALKALINE PHOSPHATASE 80 IU/L (42-121); ALT ALANINE AMINOTRANSFERASE 12 IU/L (10-60); AST ASPARTATE AMINOTRANSFERASE 13 IU/L (10-42); BILIRUBIN,TOTAL 0.9 mg/dL (0.2-1.0); BUN - BLOOD UREA NITROGEN 26 mg/dL (6-20); CALCIUM 8.9 mg/dL (8.5-10.3); CARBON DIOXIDE - CO2 30 mmol/L (21-32); CHLORIDE 102 mmol/L (101-111); CREATININE 0.8 mg/dL (0.6-1.2); GFR - MDRD 92 (>89); GLUCOSE 107 mg/dL (70-100); MAGNESIUM 2.3 mg/dL (1.7-2.8); PHOSPHORUS 3.2 mg/dL (2.5-4.6); SODIUM 138 mmol/L (135-145); TOTAL PROTEIN 6.5 g/dL (6.7-8.2)
[2017-12-11] MEDS: FUROSEMIDE 40 MG TABLET PO SCH (06:19)
[2017-12-11] MEDS ORDERED: ASPIRIN EC 81 MG TABLET PO SCH (08:00)
[2017-12-11] MEDS ORDERED: TAMSULOSIN 0.4 MG CAPSULE PO SCH (09:00)
[2017-12-11] MEDS ORDERED: LOSARTAN 50 MG TABLET PO SCH (09:00)
[2017-12-11] MEDS ORDERED: LISINOPRIL 5 MG TABLET PO SCH (09:00)
[2017-12-11] MEDS: METOPROLOL TARTRATE 25 MG TABLET PO SCH (09:30)
[2017-12-11] MEDS: POLYETHYLENE GLYCOL 3350 17 GM PACKET PO SCH (09:34)
[2017-12-11 09:51] VITALS: BP 105/55
--- NOTE | 2017-12-11 10:47 | Discharge Plan ---
Discharge Plan Disposition: Home, Self Care Condition: Fair Prescriptions: Furosemide [Lasix] 40 mg PO DAILY #30 tablet Diet: Low Sodium (Please restrict fluid intake to no more than 2-2.5L a day.) Activity Restrictions: No Restrictions Shower Restrictions: No Driving Restrictions: No Weight Bearing: Full Weight Additional Instructions or Follow Up instructions: You presented to the emergency department with shortness of breath and were found to have congestive heart failure. You were treated with a water pill called Lasix which helped to remove fluid from her lungs. After treatment you are doing much better and well enough to return home. I have prescribed you water pill that you can take orally and I would recommend taking daily as prescribed you. I also recommend a low-salt diet and a fluid restriction of no more than 2-2-1/2 L a day. Also check your weight daily as we talked about and write down your weights. If your weight increases by more than 5 pounds then please call your primary care physician's office to have your water pill dose changed. Please follow-up with your beam dyer as scheduled. Continue your home medications including metoprolol and cozaar. No Smoking: If you smoke, Please STOP! Call for help. Follow-up with: Clotilde Pike MD [Provider Admit Priv/Credential] -
--- NOTE | 2017-12-11 11:01 | DISCHARGE SUMMARY ---
Discharge Summary Admit Date: 12/09/17 Discharge Date: 12/11/17 Discharging Provider: Chepe Rico MD Primary Care Provider: Clotilde Pike Code Status: Attempt Resuscitation Condition at Discharge: Fair Discharge Disposition: 01 Home, Self Care - DIAGNOSES Admission Diagnoses: 1. Acute decompensated systolic heart failure 2. Bradycardia 3. Hypoxic respiratory failure secondary to congestive heart failure and pulmonary edema 4. DVT prophylaxis Discharge Diagnoses with Status of Each Condition: 1. Acute respiratory failure with hypoxia: Resolved 2. Acute systolic heart failure, first episode: stable 3. Bradycardia: Resolved 4. Coronary artery disease: Stable 5. Hypertension: Stable - HPI History of Present Illness: The patient is an 86-year-old gentleman with a past medical history significant for hypertension, BPH, dyslipidemia, and history of remote colon cancer status post partial colectomy who presents to the emergency department with a chief complaint of sudden onset of shortness of breath. The patient was in his usual state of health on the morning of 12/08/2017 and went on with his usual activities all day. Overnight at 3 AM on 12/09/2017, he woke his daughter crying out for help. He experienced sudden onset intense sharp chest pain, which worried him enough to tell his daughter to call the ambulance immediately. At the same time he became profoundly short of breath. Per EMS he was found in critically ill condition. His oxygen saturation was 70% on room air, notably he has never been on oxygen. His blood pressure was elevated around 170 systolic. Per EMS report he was found bradycardic and therefore pacer pads were placed. He was started on BiPAP given nitroglycerin and given IV Lasix. He was also reported by his daughter that besides his chest pain and shortness of breath the patient was cold, clammy and shaking. He also appeared to have a decreased level of consciousness for short period of time. By the time the patient arrived to the emergency department he had improved and was able to answer questions in short sentences but was still having trouble breathing. During the emergency room stay he did not have any ST elevations or ischemic changes on his EKG. The patient's blood pressure was borderline low around 100 systolic. Patient was afebrile. He did have an elevated white blood cell count of around 16. His troponin was negative and BNP was slightly elevated at 340. Patient's renal function was normal. His chemistry panel was unremarkable. Chest x-ray showed bilateral infiltrates consistent with congestive heart failure. The patient was admitted to the intensive care unit on BiPAP and IV Lasix. - HOSPITAL COURSE Hospital Course: Initially during the hospital stay the patient was on BiPAP and treated with IV Lasix for diuresis. The patient had had a recent myocardial perfusion scan which had revealed a large fixed defect in the inferior wall involving apex and moderate fixed defect in the anterior septal region. According to the MPI the patient's left ventricular ejection fraction was estimated to be 24% at that time. The patient did have an echocardiogram while he was hospitalized and this showed that the patient's ejection fraction was 30% with severe global hypokinesis. The patient also had grade 1 diastolic dysfunction along with moderate mitral regurgitation. During the hospitalization the patient did undergo serial troponins these were negative. The patient was also monitored on telemetry and his rhythm appeared normal. The patient improved over 2 days in the hospital and was weaned down to room air. By the time of discharge the patient was able to walk the halls without any significant shortness of air. The patient's medications were optimized for treatment of congestive heart failure as he was continued on metoprolol and Cozaar. His Lasix was switched to oral Lasix which he was tolerating well. The patient was discharged home on 40 mg of Lasix daily and instructed to check his weights daily. The patient was also instructed to restrict his fluid to no more than 2-2-1/2 L and follow a low-sodium diet. The patient will follow up with his primary care physician and cardiology within the next 2 weeks. 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 - ALLERGIES Allergies/Adverse Reactions: Allergies Allergy/AdvReac Type Severity Reaction Status Date / Time Penicillins Allergy Mild Rash Verified 12/09/17 03:48 venom-honey bee Allergy Rash Verified 12/09/17 03:48 [bee venom (honey bee)] banana [Banana] AdvReac nausea/bloa Verified 12/09/17 03:48 ting - MEDICATIONS Home Medications: Ambulatory Orders Medication Instructions Recorded Confirmed Omeprazole 40 mg ORAL DAILY 08/05/15 12/09/17 Tamsulosin [Flomax] 0.4 mg ORAL DAILY 08/05/15 12/09/17 Aspirin [Aspirin EC] 81 mg PO DAILYWM 12/09/17 12/09/17 Losartan [Cozaar] 50 mg PO DAILY 12/09/17 12/09/17 Lovastatin 20 mg PO QPM 12/09/17 12/09/17 Metoprolol Succinate [Toprol Xl] 25 mg PO DAILY 12/09/17 12/09/17 Furosemide [Lasix] 40 mg PO DAILY #30 tablet 12/11/17 - PHYSICAL EXAM AT DISCHARGE General Appearance: positive: No acute distress, Alert Eyes Bilateral: positive: Normal inspection, PERRL, EOMI, No lid inflammation, Conjunctivae nml, No scleral icterus ENT: positive: ENT inspection nml, Pharynx nml, No signs of dehydration. negative: Purulent nasal drainage, Pharyngeal erythema, Oral lesions Neck: positive: Nml inspection, Thyroid nml, No JVD, Trachea midline. negative : Thyromegaly, Lymphadenopathy (R), Lymphadenopathy (L), Stiff neck, Carotid bruit, Tracheal deviation Respiratory: positive: Chest non-tender, No respiratory distress, Rhonchi (mild at the bases). negative: Wheezes, Rales Cardiovascular: positive: Regular rate & rhythm, No gallop, Systolic murmur Peripheral Pulses: positive: 2+ Abdomen: positive: Non-tender, No organomegaly, Nml bowel sounds, No distention. negative: Guarding, Rebound, Hepatomegaly Back: positive: Nml inspection. negative: CVA tenderness (R), CVA tenderness (L ) Skin: positive: Color nml, No rash, Warm. negative: Cyanosis, Diaphoresis, Pallor Extremities: positive: Non-tender, Full ROM, Nml appearance, No pedal edema Neurologic/Psychiatric: positive: Oriented x3, CN's nml (2-12), Motor nml, Sensation nml, Mood/affect nml - LABS Result Diagrams: 12/11/17 05:45 12/11/17 05:45 Other Lab Results: Laboratory Results WBC 9.5 x10^3/uL (4.8-10.8) 12/11/17 05:45 RBC 4.92 10^6/uL (4.70-6.10) 12/11/17 05:45 Hgb 14.4 g/dL (14.0-18.0) 12/11/17 05:45 Hct 43.6 % (42.0-52.0) 12/11/17 05:45 MCV 88.7 fL (80.0-94.0) 12/11/17 05:45 MCH 29.3 pg (27.0-31.0) 12/11/17 05:45 MCHC 33.0 g/dL (32.0-36.0) 12/11/17 05:45 RDW 13.3 % (12.0-15.0) 12/11/17 05:45 Plt Count 199 10^3/uL (130-450) 12/11/17 05:45 MPV 7.9 fL (7.4-11.4) 12/11/17 05:45 Neut # 5.3 10^3/uL (1.5-6.6) 12/11/17 05:45 Lymph # 3.3 10^3/uL (1.5-3.5) 12/11/17 05:45 [place] # 0.7 10^3/uL (0.0-1.0) 12/11/17 05:45 Eos # 0.1 10^3/uL (0.0-0.7) 12/11/17 05:45 Baso # 0.1 10^3/uL (0.0-0.1) 12/11/17 05:45 Absolute Nucleated RBC 0.01 x10^3/uL 12/11/17 05:45 Nucleated RBC % 0.1 /100WBC 12/11/17 05:45 Anti-Xa Level 0.3 U/mL (-0.7) 12/09/17 13:56 Bld Gas Analysis Time 0849 12/09/17 08:45 Sample Site RIGHT RADIAL 12/09/17 08:45 ABG pH 7.32 (7.35-7.45) L 12/09/17 08:45 ABG pCO2 44 mmHg (34-45) 12/09/17 08:45 ABG pO2 125 mmHg (80-100) H 12/09/17 08:45 ABG HCO3 21.9 mmol/L (22.0-26.0) L 12/09/17 08:45 ABG Total CO2 23.3 MMOL/L (21.0-29.0) 12/09/17 08:45 ABG O2 Saturation 99 % (94-98) H 12/09/17 08:45 ABG Base Excess -4.3 mmol/L (-2.0-3.0) L 12/09/17 08:45 Arturo Test POSITIVE 12/09/17 08:45 VBG pH 7.373 (7.31-7.41) 12/09/17 03:56 VBG pCO2 30.0 mmHg (41-51) L 12/09/17 03:56 VBG pO2 178.5 mmHg (25-47) H 12/09/17 03:56 VBG HCO3 17.1 mmol/L (23-28) L 12/09/17 03:56 VBG Total CO2 18.0 mmol/L (24-29) L 12/09/17 03:56 VBG O2 Saturation 99.4 % (60-80) H 12/09/17 03:56 VBG Base Excess -6.5 mmol/L (-2 - +2) L 12/09/17 03:56 O2 Delivery Device BiPAP 12/09/17 08:45 FiO2 40.00 12/09/17 08:45 EPAP 4 cmH2O 12/09/17 08:45 IPAP 12 cmH2O 12/09/17 08:45 Sodium 138 mmol/L (135-145) 12/11/17 05:45 Potassium 4.1 mmol/L (3.5-5.0) 12/11/17 05:45 Chloride 102 mmol/L (101-111) 12/11/17 05:45 Carbon Dioxide 30 mmol/L (21-32) 12/11/17 05:45 Anion Gap 6.0 (6-13) 12/11/17 05:45 BUN 26 mg/dL (6-20) H 12/11/17 05:45 Creatinine 0.8 mg/dL (0.6-1.2) 12/11/17 05:45 Estimated GFR (MDRD) 92 (>89) 12/11/17 05:45 Glucose 107 mg/dL (70-100) H 12/11/17 05:45 Calcium 8.9 mg/dL (8.5-10.3) 12/11/17 05:45 Ionized Calcium NO 12/11/17 05:45 Phosphorus 3.2 mg/dL (2.5-4.6) 12/11/17 05:45 Magnesium 2.3 mg/dL (1.7-2.8) 12/11/17 05:45 Total Bilirubin 0.9 mg/dL (0.2-1.0) 12/11/17 05:45 AST 13 IU/L (10-42) 12/11/17 05:45 ALT 12 IU/L (10-60) 12/11/17 05:45 Alkaline Phosphatase 80 IU/L (42-121) 12/11/17 05:45 Troponin I 0.05 ng/mL (<0.49) 12/09/17 13:56 B-Natriuretic Peptide 285 pg/mL (5-100) H 12/11/17 05:45 Total Protein 6.5 g/dL (6.7-8.2) L 12/11/17 05:45 Albumin 3.9 g/dL (3.2-5.5) 12/11/17 05:45 Globulin 2.6 g/dL (2.1-4.2) 12/11/17 05:45 Albumin/Globulin Ratio 1.5 (1.0-2.2) 12/11/17 05:45 Lipase 24 U/L (22-51) 12/09/17 03:50 - DIAGNOSTIC IMAGING Diagnostic Imaging Results: Final report reviewed Diagnostic Imaging Results Comments: Echocardiogram conclusions 1. Mild left ventricular enlargement 2. There is severe global hypokinesis of left ventricular contractility. Left ventricular ejection fraction is 30% 3. Impaired relaxation consistent with grade 1 diastolic dysfunction 4. The right ventricular systolic function is mildly impaired 6. There is moderate mitral regurgitation 7. Mildly abnormal right heart pressures 8. The right ventricular systolic pressure at rest is 44 mmHg Chest x-ray Impression: 1. Borderline heart size and new bilateral infiltrates or pulmonary edema. 2. Possible trace right pleural effusion - FOLLOW UP Follow Up: Patient discharged home with PO lasix 40 mg daily. He will follow a low sodium diet and restrict fluid intake to 2-2.5L daily. He will check his weights daily and call his PCPs office if weight increases by more than 5lbs. Patient will follow up with cardiology as an outpatient. He will continue taking metoprolol and cozaar. - TIME SPENT Time Spent in Discharge (Minutes): 45
== END 2017-12-11 11:39 | disposition home or self-care (01) | DRG 291 ==
LOC: EDUNIT# → ED 03:35 → ICU 06:29 → MS2 12-10 16:09
PROVIDERS: ADMIT Internal Medicine; ATTEND Internal Medicine
DX: I11.0 Hypertensive heart disease with heart failure (principal); I50.9 Heart failure, unspecified; J18.9 Pneumonia, unspecified organism; J96.91 Respiratory failure, unspecified with hypoxia; J96.01 Acute respiratory failure with hypoxia; E78.00 Pure hypercholesterolemia, unspecified; Z86.711 Personal history of pulmonary embolism; Z79.01 Long term (current) use of anticoagulants; Z87.891 Personal history of nicotine dependence; Z66 Do not resuscitate; I50.23 Acute on chronic systolic (congestive) heart failure; I25.10 Atherosclerotic heart disease of native coronary artery without angina pectoris; I34.0 Nonrheumatic mitral (valve) insufficiency; I44.7 Left bundle-branch block, unspecified; N40.0 Benign prostatic hyperplasia without lower urinary tract symptoms; E78.5 Hyperlipidemia, unspecified; Q21.9 Congenital malformation of cardiac septum, unspecified; Z85.038 Personal history of other malignant neoplasm of large intestine; Z90.49 Acquired absence of other specified parts of digestive tract; Z79.82 Long term (current) use of aspirin; Z87.11 Personal history of peptic ulcer disease
CPT/HCPCS: 36415; 36600; 71045; 80053; 82803; 83690; 83735; 83880; 84100; 84484; 85025; 85520; 87040; 87150; 93005; 93306; 94660; 96365; 96375; 99284; 99285; 99291

== ENCOUNTER 2018-01-20 09:19 | Outpatient (CLI) | payer MEDICARE, BC ==
[2018-01-20 13:33] LABS: CALCIUM 8.8 mg/dL (8.5-10.3)
== END 2018-01-20 09:20 | disposition home or self-care (01) ==
LOC: LAB.WCP 09:19
PROVIDERS: ATTEND Internal Medicine Cardiovascular Disease
DX: I42.8 Other cardiomyopathies (principal)
CPT/HCPCS: 36415; 80048

== ENCOUNTER 2018-06-10 09:00 | Outpatient (CLI) | payer MEDICARE, BC ==
[2018-06-10 12:45] LABS: BASOPHILS % (AUTO) 0.6 %; EOSINOPHILS # (AUTO) 0.1 10^3/uL (0.0-0.7); EOSINOPHILS % (AUTO) 1.1 %; HGB - HEMOGLOBIN 15.5 g/dL (14.0-18.0); LYMPHOCYTES # (AUTO) 3.1 10^3/uL (1.5-3.5); LYMPHOCYTES % (AUTO) 38.1 %; MEAN CORPUSCULAR HEMOGLOBIN 30.7 pg (27.0-31.0); MEAN CORPUSCULAR HGB CONC 34.2 g/dL (32.0-36.0); MEAN CORPUSCULAR VOLUME 89.6 fL (80.0-94.0); MEAN PLATELET VOLUME 8.4 fL (7.4-11.4); MONOCYTES # (AUTO) 0.6 10^3/uL (0.0-1.0); MONOCYTES % (AUTO) 6.9 %; NEUTROPHILS # (AUTO) 4.4 10^3/uL (1.5-6.6); NEUTROPHILS % (AUTO) 53.3 %; PLT - PLATELET COUNT 229 10^3/uL (130-450); RED BLOOD COUNT 5.06 10^6/uL (4.70-6.10); WHITE BLOOD COUNT 8.2 x10^3/uL (4.8-10.8)
[2018-06-10 13:13] LABS: ALBUMIN 4.2 g/dL (3.2-5.5); ALBUMIN/GLOBULIN RATIO 1.3 (1.0-2.2); ALKALINE PHOSPHATASE 96 IU/L (42-121); ALT ALANINE AMINOTRANSFERASE 12 IU/L (10-60); AST ASPARTATE AMINOTRANSFERASE 16 IU/L (10-42); BILIRUBIN,TOTAL 0.7 mg/dL (0.2-1.0); BUN - BLOOD UREA NITROGEN 20 mg/dL (6-20); CALCIUM 9.2 mg/dL (8.5-10.3); CARBON DIOXIDE - CO2 32 mmol/L (21-32); CHLORIDE 101 mmol/L (101-111); CHOL/HDL RATIO 4.3 (<5.0); CHOLESTEROL 176 mg/dL; CREATININE 1.1 mg/dL (0.6-1.2); GFR - MDRD 64 (>89); GLUCOSE 108 mg/dL (70-100); HDL CHOLESTEROL 41 mg/dL; LDL CHOLESTEROL,CALCULATED 105 mg/dL; LDL/HDL RATIO 2.6 (<3.6); SODIUM 140 mmol/L (135-145); TOTAL PROTEIN 7.4 g/dL (6.7-8.2); VLDL CHOLESTEROL 30 mg/dL
== END 2018-06-10 09:01 | disposition home or self-care (01) ==
LOC: LAB.WCP 09:00
PROVIDERS: ATTEND Family Medicine
DX: I10 Essential (primary) hypertension (principal); E78.5 Hyperlipidemia, unspecified
CPT/HCPCS: 36415; 80053; 80061; 83721; 85025

== ENCOUNTER 2018-09-08 08:59 | Outpatient (CLI) | payer MEDICARE, BC ==
[2018-09-08 13:32] LABS: BASOPHILS % (AUTO) 0.6 %; EOSINOPHILS # (AUTO) 0.1 10^3/uL (0.0-0.7); EOSINOPHILS % (AUTO) 1.3 %; HGB - HEMOGLOBIN 14.7 g/dL (14.0-18.0); LYMPHOCYTES # (AUTO) 2.5 10^3/uL (1.5-3.5); LYMPHOCYTES % (AUTO) 42.8 %; MEAN CORPUSCULAR HEMOGLOBIN 30.9 pg (27.0-31.0); MEAN CORPUSCULAR HGB CONC 34.7 g/dL (32.0-36.0); MEAN PLATELET VOLUME 8.3 fL (7.4-11.4); MONOCYTES # (AUTO) 0.4 10^3/uL (0.0-1.0); MONOCYTES % (AUTO) 6.9 %; NEUTROPHILS # (AUTO) 2.8 10^3/uL (1.5-6.6); NEUTROPHILS % (AUTO) 48.4 %; PLT - PLATELET COUNT 213 10^3/uL (130-450); RED BLOOD COUNT 4.75 10^6/uL (4.70-6.10); RED CELL DISTRIBUTION WIDTH 12.7 % (12.0-15.0); WHITE BLOOD COUNT 5.9 x10^3/uL (4.8-10.8)
[2018-09-08 13:56] LABS: ALBUMIN/GLOBULIN RATIO 1.4 (1.0-2.2); ALKALINE PHOSPHATASE 95 IU/L (42-121); ALT ALANINE AMINOTRANSFERASE 11 IU/L (10-60); AST ASPARTATE AMINOTRANSFERASE 15 IU/L (10-42); BILIRUBIN,TOTAL 0.9 mg/dL (0.2-1.0); BUN - BLOOD UREA NITROGEN 20 mg/dL (6-20); CALCIUM 8.6 mg/dL (8.5-10.3); CARBON DIOXIDE - CO2 30 mmol/L (21-32); CHLORIDE 103 mmol/L (101-111); CHOL/HDL RATIO 4.6 (<5.0); CHOLESTEROL 166 mg/dL; CREATININE 1.1 mg/dL (0.6-1.2); GFR - MDRD 64 (>89); GLUCOSE 100 mg/dL (70-100); HDL CHOLESTEROL 36 mg/dL; LDL CHOLESTEROL,CALCULATED 105 mg/dL; LDL/HDL RATIO 2.9 (<3.6); SODIUM 141 mmol/L (135-145); TOTAL PROTEIN 6.8 g/dL (6.7-8.2); VLDL CHOLESTEROL 25 mg/dL
[2018-09-08 18:05] LABS: HB2 TOTAL 15.5 g/dL; HEMOGLOBIN A1C 0.55 g/dL; HEMOGLOBIN A1C % 5.4 % (4.6-6.2)
== END 2018-09-08 23:59 | disposition home or self-care (01) ==
LOC: LAB.WCP 08:59
PROVIDERS: ATTEND Family Medicine
DX: I50.9 Heart failure, unspecified (principal); I10 Essential (primary) hypertension; E74.39 Other disorders of intestinal carbohydrate absorption; Z12.5 Encounter for screening for malignant neoplasm of prostate; E78.5 Hyperlipidemia, unspecified
CPT/HCPCS: 36415; 80053; 80061; 83036; 85025; G0103; 83721; 84153

== ENCOUNTER 2019-04-18 13:51 | Outpatient (CLI) | payer MEDICARE, BC ==
[2019-04-18 18:35] LABS: BASOPHILS % (AUTO) 0.6 %; EOSINOPHILS % (AUTO) 0.9 %; HGB - HEMOGLOBIN 13.5 g/dL (14.0-18.0); LYMPHOCYTES % (AUTO) 35.3 %; MEAN CORPUSCULAR HEMOGLOBIN 29.9 pg (27.0-31.0); MEAN CORPUSCULAR HGB CONC 31.8 g/dL (32.0-36.0); MEAN CORPUSCULAR VOLUME 93.8 fL (80.0-94.0); MEAN PLATELET VOLUME 10.5 fL (7.4-11.4); MONOCYTES % (AUTO) 7.5 %; NEUTROPHILS % (AUTO) 55.3 %; PLT - PLATELET COUNT 200 10^3/uL (130-450); RED BLOOD COUNT 4.52 10^6/uL (4.70-6.10); RED CELL DISTRIBUTION WIDTH 13.1 % (12.0-15.0); WHITE BLOOD COUNT 8.1 x10^3/uL (4.8-10.8)
[2019-04-18 18:45] LABS: ABNORMAL LYMPHS % (MANUAL) 0 %; BAND NEUTROPHILS % (MANUAL) 0 %
[2019-04-18 18:55] LABS: HB2 TOTAL 14.2 g/dL; HEMOGLOBIN A1C 0.54 g/dL; HEMOGLOBIN A1C % 5.6 % (4.6-6.2)
[2019-04-18 18:57] LABS: ALBUMIN/GLOBULIN RATIO 1.5 (1.0-2.2); ALKALINE PHOSPHATASE 86 IU/L (42-121); ALT ALANINE AMINOTRANSFERASE 12 IU/L (10-60); AST ASPARTATE AMINOTRANSFERASE 16 IU/L (10-42); BILIRUBIN,TOTAL 0.9 mg/dL (0.2-1.0); BUN - BLOOD UREA NITROGEN 28 mg/dL (6-20); CALCIUM 8.8 mg/dL (8.5-10.3); CARBON DIOXIDE - CO2 27 mmol/L (21-32); CHLORIDE 105 mmol/L (101-111); CHOL/HDL RATIO 3.7 (<5.0); CHOLESTEROL 139 mg/dL; CREATININE 1.3 mg/dL (0.6-1.2); GFR - MDRD 52 (>89); GLUCOSE 103 mg/dL (70-100); HDL CHOLESTEROL 38 mg/dL; LDL CHOLESTEROL,CALCULATED 63 mg/dL; LDL/HDL RATIO 1.7 (<3.6); SODIUM 143 mmol/L (135-145); TOTAL PROTEIN 6.6 g/dL (6.7-8.2); VLDL CHOLESTEROL 38 mg/dL
[2019-04-18 19:26] LABS: DIFFERENTIAL COMMENT MANUAL DIFFERENTIAL; EOSINOPHILS # (MANUAL) 0.1 10^3/uL (0-0.7); LYMPHOCYTES # (MANUAL) 2.8 10^3/uL (1.5-3.5); LYMPHOCYTES % (MANUAL) 35 %; MONOCYTES # (MANUAL) 0.5 10^3/uL (0.0-1.0); PLATELET ESTIMATE, MANUAL NORMAL (130-450,000) (NORMAL); PLATELET MORPHOLOGY NORMAL APPEARANCE (NORMAL); RBC MORPHOLOGY (MULTIPLE) NORMAL APPEARANCE (NORMAL)
== END 2019-04-18 23:59 | disposition home or self-care (01) ==
LOC: LAB.WCP 13:51
PROVIDERS: ATTEND Family Medicine
DX: I10 Essential (primary) hypertension (principal); E74.39 Other disorders of intestinal carbohydrate absorption; E78.5 Hyperlipidemia, unspecified
CPT/HCPCS: 36415; 80053; 80061; 83036; 83721; 85025

== ENCOUNTER 2019-06-04 05:27 | Emergency (ER) | payer MEDICARE, BC ==
[2019-06-04 05:34] VITALS: BP 117/81
[2019-06-04] MEDS ORDERED: IPRATROPIUM/ALBUTEROL 3 ML NEB INH STA (06:03)
[2019-06-04] MEDS ORDERED: DEXAMETHASONE 10 MG/ML VIAL PO STA (06:03)
[2019-06-04] MEDS ORDERED: CHERRY SYRUP 10 ML UDC PO ONE (06:03)
--- NOTE | 2019-06-04 06:24 | ED Physician Documentation ---
PD HPI DYSPNEA - Stated complaint Stated Complaint: SOA,COUGHING - Chief complaint Chief Complaint: Resp - History obtained from History obtained from: Patient, Family - History of Present Illness Timing - onset: Yesterday Timing - onset during: Rest Timing - duration: Days (2) Timing - details: Gradual onset, Still present Inciting event(s): URI Improved by: Rest, Sitting up Worsened by: Laying flat, Coughing Associated symptoms: Cough, Wheezing. No: Fever, Bilateral edema Similar symptoms before: Diagnosis (COPD) Recently seen: Other - Additional information Additional information: 88-year-old male with a history of CHF and COPD has developed a cough and congestion he has some wheezing and this is worsening and did not respond to his breathing treatment. He is come to the emergency department for further treatment. He states that he feels better if he is sitting up and not coughing. He has some postnasal drainage. He states that he is not sick like he was the previous time he was admitted to the hospital here with acute congestive heart failure. Review of Systems Constitutional: denies: Fever, Chills, Myalgias Eyes: denies: Decreased vision Ears: denies: Ear pain Nose: reports: Rhinorrhea / runny nose, Congestion Throat: denies: Sore throat Cardiac: denies: Chest pain / pressure, Palpitations, Pedal edema, Calf pain Respiratory: reports: Dyspnea, Cough, Wheezing GI: denies: Abdominal Pain, Nausea, Vomiting : denies: Dysuria, Frequency PD PAST MEDICAL HISTORY - Past Medical History Past Medical History: Yes Cardiovascular: Hypertension, High cholesterol, Other Respiratory: None Endocrine/Autoimmune: None GI: Ulcers, Hepatitis : Benign prostate hypertrophy, Frequency Psych: None, Claustrophobia Musculoskeletal: Osteoarthritis Derm: None - Past Surgical History Past Surgical History: Yes General: Bowel surgery - Present Medications Home Medications: Ambulatory Orders Medication Instructions Recorded Confirmed Omeprazole 40 mg ORAL DAILY 08/05/15 06/04/19 Tamsulosin [Flomax] 0.4 mg ORAL DAILY 08/05/15 06/04/19 Aspirin [Aspirin EC] 81 mg PO DAILYWM 12/09/17 06/04/19 Losartan [Cozaar] 50 mg PO DAILY 12/09/17 06/04/19 Lovastatin 20 mg PO QPM 12/09/17 06/04/19 Metoprolol Succinate [Toprol Xl] 25 mg PO DAILY 12/09/17 06/04/19 Furosemide [Lasix] 40 mg PO DAILY #30 tablet 12/11/17 06/04/19 Albuterol Sulf [Ventolin Hfa 1 - 2 puffs INH Q4HR PRN #1 inhaler 06/04/19 Inhaler] Azithromycin [Zithromax] 250 mg PO DAILY #6 tablet 06/04/19 predniSONE [Prednisone] 40 mg PO DAILY #10 tablet 06/04/19 - Allergies Allergies/Adverse Reactions: Allergies Allergy/AdvReac Type Severity Reaction Status Date / Time Penicillins Allergy Mild Rash Verified 06/04/19 05:34 venom-honey bee Allergy Rash Verified 06/04/19 05:34 [bee venom (honey bee)] banana [Banana] AdvReac nausea/bloa Verified 06/04/19 05:34 ting - Social History Does the pt smoke?: No Smoking Status: Never smoker Does the pt drink ETOH?: No Does the pt have substance abuse?: No - Immunizations Immunizations are current?: Yes - POLST Patient has POLST: No PD ED PE NORMAL - Vitals Vital signs reviewed: Yes (hypertension diastolic ) - General General: Alert and oriented X 3, No acute distress, Well developed/nourished - HEENT HEENT: Atraumatic, PERRL, EOMI, Ears normal, Other (dry mucous membranes ) - Neck Neck: Supple, no meningeal sign, No bony TTP - Cardiac Cardiac: RRR, No murmur, Other (distant heart sounds ) - Respiratory Respiratory: No respiratory distress, Other (wheezes and rhonchi scattered throughout ) - Abdomen Abdomen: Soft, Non tender - Back Back: No CVA TTP, No spinal TTP - Derm Derm: Normal color, Warm and dry, No rash - Extremities Extremities: No deformity, No edema, No calf tenderness / cord - Neuro Neuro: Alert and oriented X 3, warp spinner 2-12 intact, No motor deficit, No sensory deficit, Normal speech Eye Opening: Spontaneous Motor: Obeys Commands Verbal: Oriented GCS Score: 15 - Psych Psych: Normal mood, Normal affect Results - Vitals Vitals: Vital Signs - 24 hr 06/04/19 06/04/19 05:31 06:27 Temperature 36 C L Heart Rate 76 64 Respiratory 16 20 Rate Blood Pressure 117/81 H O2 Saturation 93 Oxygen O2 Source Room air - Rads (name of study) chest Radiology: Prelim report reviewed (Impression: 1. At least 2 pulmonary nodules in the right lung, the largest measures 6 mm. Further characterization with chest CT is recommended. 2 Chronic T12 moderate anterior vertebral body compression fracture.), EMP read indepedently (On my reading these pulmonary nodules are present as far back as 2014. The chest looks dry. ), See rad report Procedures - IVC sono (time) 0555 Bedside IVC sono: IVC measures (cm) (1.3 difficult vessle to examine), Dehydration (est <1 liter deficit) PD MEDICAL DECISION MAKING - ED course Complexity details: reviewed old records, reviewed results, re-evaluated patient, considered differential, d/w patient, d/w family ED course: 88 y/o male with a history of CHF and COPD is wheezing this morning and has no evidence of CHF on exam. He has no peripheral edema and a collapsing small IVC. He may be more dehydrated than estimated. He is administered a duo-neb treatment and decadron and he responds. His chest x-ray is clear -- a little too clear from dehydration (weight was down 2lbs this morning) . He is instructed to hold his lasix today, we will provide a new albuterol inhaler, a 5 day course of prednisone and azithromycin. Departure - Departure Disposition: 01 Home, Self Care Clinical Impression: Bronchitis Condition: Stable Instructions: ED Bronchitis Asthmatic Follow-Up: [facility] [Provider Group] Prescriptions: Albuterol Sulf [Ventolin Hfa Inhaler] 1 - 2 puffs INH Q4HR PRN #1 inhaler PRN Reason: Shortness Of Air/Wheezing Azithromycin [Zithromax] 250 mg PO DAILY #6 tablet predniSONE [Prednisone] 40 mg PO DAILY #10 tablet
--- NOTE | 2019-06-04 06:35 | XRAY Report ---
Reason: cough/wheezing Procedure Date: 06/04/2019 Accession Number: [id number] / [id number] Procedure: XR - Chest 2 View X-Ray CPT Code: 17130 FULL RESULT: EXAM: CHEST RADIOGRAPHY EXAM DATE: 06/04/2019 06:25 AM. CLINICAL HISTORY: Cough/wheezing. COMPARISON: CHEST 1 VIEW 12/09/2017 4:02 AM. TECHNIQUE: 2 views. FINDINGS: Lungs/Pleura: At least 2 pulmonary nodules are seen in the right lung; the largest measures 6 mm. No focal opacities evident. No pleural effusion. No pneumothorax. Normal volumes. Mediastinum: Heart and mediastinal contours are unremarkable. Other: Moderate anterior vertebral body compression fracture T12. Left-sided chest wall cardiac device with 3-lead tips overlying the regions of the right atrial appendage, apex of the right ventricle, and coronary sinus. IMPRESSION: 1. At least 2 pulmonary nodules in the right lung, the largest measures 6 mm. Further characterization with chest CT is recommended. 2. Chronic T12 moderate anterior vertebral body compression fracture. RADIA
== END 2019-06-04 07:34 | disposition home or self-care (01) ==
LOC: ED 05:27
DX: J44.9 Chronic obstructive pulmonary disease, unspecified (principal); E86.0 Dehydration; R91.8 Other nonspecific abnormal finding of lung field; I11.0 Hypertensive heart disease with heart failure; I50.9 Heart failure, unspecified; Z79.82 Long term (current) use of aspirin
CPT/HCPCS: 71046; 94640; 99283; 99284; A9270

== ENCOUNTER 2019-06-27 08:00 | Outpatient (CLI) | payer MEDICARE, BC ==
[2019-06-27 18:41] LABS: BASOPHILS # (AUTO) 0.1 10^3/uL (0.0-0.1); BASOPHILS % (AUTO) 0.7 %; EOSINOPHILS # (AUTO) 0.1 10^3/uL (0.0-0.7); EOSINOPHILS % (AUTO) 1.4 %; HGB - HEMOGLOBIN 13.6 g/dL (14.0-18.0); LYMPHOCYTES # (AUTO) 2.6 10^3/uL (1.5-3.5); LYMPHOCYTES % (AUTO) 36.2 %; MEAN CORPUSCULAR HGB CONC 31.3 g/dL (32.0-36.0); MEAN CORPUSCULAR VOLUME 95.8 fL (80.0-94.0); MEAN PLATELET VOLUME 11.1 fL (7.4-11.4); MONOCYTES # (AUTO) 0.6 10^3/uL (0.0-1.0); MONOCYTES % (AUTO) 7.7 %; NEUTROPHILS # (AUTO) 3.9 10^3/uL (1.5-6.6); NEUTROPHILS % (AUTO) 53.6 %; PLT - PLATELET COUNT 181 10^3/uL (130-450); RED BLOOD COUNT 4.53 10^6/uL (4.70-6.10); RED CELL DISTRIBUTION WIDTH 13.6 % (12.0-15.0); WHITE BLOOD COUNT 7.3 x10^3/uL (4.8-10.8)
[2019-06-27 19:03] LABS: HB2 TOTAL 14.7 g/dL; HEMOGLOBIN A1C 0.52 g/dL; HEMOGLOBIN A1C % 5.4 % (4.6-6.2)
[2019-06-27 19:06] LABS: ALBUMIN 3.9 g/dL (3.2-5.5); ALBUMIN/GLOBULIN RATIO 1.6 (1.0-2.2); BILIRUBIN,TOTAL 0.7 mg/dL (0.2-1.0); CALCIUM 8.8 mg/dL (8.5-10.3); TOTAL PROTEIN 6.3 g/dL (6.7-8.2)
== END 2019-06-27 23:59 | disposition home or self-care (01) ==
LOC: LAB.WCP 08:00
PROVIDERS: ATTEND Family Medicine
DX: R15.9 Full incontinence of feces (principal); C20 Malignant neoplasm of rectum; E74.39 Other disorders of intestinal carbohydrate absorption
CPT/HCPCS: 36415; 80053; 82378; 83036; 85025

== ENCOUNTER 2019-07-28 12:46 | Emergency (ER) | payer MEDICARE, BC ==
--- NOTE | 2019-07-28 15:16 | ED Physician Documentation ---
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 Patient states that after his pacemaker placement he was found to have multiple clots in his left upper extremity in January, and he was put on Eliquis for 60 days with resolution so this was stopped. He finished the eliquis in February. Today he woke up with some redness and stiffness in his bicep, so it was recommended by his primary care provider that he come in here for further evaluation. He denies fever, denies trauma to the area. No chest pain or shortness of breath. Review of Systems Constitutional: denies: Fever Cardiac: denies: Chest pain / pressure Respiratory: denies: Dyspnea Musculoskeletal: reports: Extremity pain PD PAST MEDICAL HISTORY - Past Medical History Cardiovascular: Hypertension, High cholesterol, Other Respiratory: None Endocrine/Autoimmune: None GI: Ulcers, Hepatitis : Benign prostate hypertrophy, Frequency Psych: None, Claustrophobia Musculoskeletal: Osteoarthritis Derm: None - Past Surgical History Past Surgical History: Yes General: Bowel surgery - Present Medications Home Medications: Ambulatory Orders Medication Instructions Recorded Confirmed Omeprazole 40 mg ORAL DAILY 08/05/15 06/04/19 Tamsulosin [Flomax] 0.4 mg ORAL DAILY 08/05/15 06/04/19 Aspirin [Aspirin EC] 81 mg PO DAILYWM 12/09/17 06/04/19 Losartan [Cozaar] 50 mg PO DAILY 12/09/17 06/04/19 Lovastatin 20 mg PO QPM 12/09/17 06/04/19 Metoprolol Succinate [Toprol Xl] 25 mg PO DAILY 12/09/17 06/04/19 Furosemide [Lasix] 40 mg PO DAILY #30 tablet 12/11/17 06/04/19 Albuterol Sulf [Ventolin Hfa 1 - 2 puffs INH Q4HR PRN #1 inhaler 06/04/19 Inhaler] Azithromycin [Zithromax] 250 mg PO DAILY #6 tablet 06/04/19 predniSONE [Prednisone] 40 mg PO DAILY #10 tablet 06/04/19 Cephalexin [Keflex] 500 mg PO Q6H #28 capsule 07/28/19 - Allergies Allergies/Adverse Reactions: Allergies Allergy/AdvReac Type Severity Reaction Status Date / Time Penicillins Allergy Mild Rash Verified 07/28/19 12:57 venom-honey bee Allergy Rash Verified 07/28/19 12:57 [bee venom (honey bee)] banana [Banana] AdvReac nausea/bloa Verified 07/28/19 12:57 ting - Social History Does the pt smoke?: No Smoking Status: Never smoker Does the pt drink ETOH?: No Does the pt have substance abuse?: No - Immunizations Immunizations are current?: Yes - POLST Patient has POLST: No PD ED PE NORMAL - Vitals Vital signs reviewed: Yes - General General: Alert and oriented X 3 - HEENT HEENT: Atraumatic - Cardiac Cardiac: RRR - Respiratory Respiratory: No respiratory distress, Clear bilaterally - Extremities Extremities: No deformity, Other (There is mild edema and erythema over the left bicep which extends from the proximal bicep to the distal bicep around 6 cm x 4 cm. No palpable cord. 2+ radial and ulnar pulses distally. Sensation intact light touch over capillary refill is brisk, strength is 5 out of 5 with hand squeeze and finger abduction) Results - Vitals Vitals: Vital Signs - 24 hr 07/28/19 07/28/19 12:54 16:48 Temperature 36.8 C Heart Rate 74 65 Respiratory 16 14 Rate Blood Pressure 136/73 H 155/78 H O2 Saturation 98 100 Oxygen O2 Source Room air - Labs Labs: Laboratory Tests 07/28/19 07/28/19 07/28/19 15:45 15:45 15:45 WBC 8.7 RBC 4.88 Hgb 15.1 Hct 45.6 MCV 93.4 MCH 30.9 MCHC 33.1 RDW 13.0 Plt Count 180 MPV 9.2 Neut # (Auto) 5.1 Lymph # (Auto) 2.8 Amelia # (Auto) 0.7 Eos # (Auto) 0.1 Baso # (Auto) 0.0 Absolute Nucleated RBC 0.00 Nucleated RBC % 0.0 PT 11.5 INR 1.0 Sodium 140 Potassium 4.0 Chloride 105 Carbon Dioxide 27 Anion Gap 8.0 BUN 16 Creatinine 0.9 Estimated GFR (MDRD) 80 L Glucose 100 Calcium 9.5 - Rads (name of study) LUE DVT study Radiology: Other (No evidence for deep venous thrombosis in the left upper extremity) PD MEDICAL DECISION MAKING - ED course Complexity details: considered differential (Cellulitis, superficial phlebitis, deep venous thrombosis) ED course: Patient is nontoxic on exam he has an isolated area of erythema and tenderness over his left bicep, there is no fluctuance or palpable mass. DVT study is obtained which shows no evidence for DVT. Labs are unremarkable. Given patient's erythema I think that he may have a cellulitis, he was started on a course of Keflex, the first Dose was given here. Patient was advised on a primary care provider follow-up for re-evaluation and possible repeat US, as well as return precautions for the emergency department. He was discharged home in the care of family. Departure - Departure Disposition: 01 Home, Self Care Clinical Impression: Cellulitis Qualifiers: Site of cellulitis: extremity Site of cellulitis of extremity: upper extremity Laterality: left Qualified Code(s): L03.114 - Cellulitis of left upper limb Condition: Good Instructions: Cellulitis Dc Follow-Up: Mando Suarez DO [Primary Care Provider] - Prescriptions: Cephalexin [Keflex] 500 mg PO Q6H #28 capsule Comments: You were seen today for some redness and stiffness in your left bicep. Your ul trasound did not show signs of a blood clot today, but please follow-up with your primary care provider in 1 week, and if you are having any continued symptoms you may need a second ultrasound. Take the antibiotic as prescribed, to treat a potential skin infection that may be causing the redness. If you are having worsening symptoms, or other concerning symptoms such as numbness, weakness, or severe pain in the arm, return to the emergency department. Discharge Date/Time: 07/28/19 17:04
[2019-07-28 15:51] LABS: BASOPHILS % (AUTO) 0.5 %; EOSINOPHILS # (AUTO) 0.1 10^3/uL (0.0-0.7); EOSINOPHILS % (AUTO) 0.8 %; HGB - HEMOGLOBIN 15.1 g/dL (14.0-18.0); LYMPHOCYTES # (AUTO) 2.8 10^3/uL (1.5-3.5); LYMPHOCYTES % (AUTO) 31.9 %; MEAN CORPUSCULAR HEMOGLOBIN 30.9 pg (27.0-31.0); MEAN CORPUSCULAR HGB CONC 33.1 g/dL (32.0-36.0); MEAN CORPUSCULAR VOLUME 93.4 fL (80.0-94.0); MEAN PLATELET VOLUME 9.2 fL (7.4-11.4); MONOCYTES # (AUTO) 0.7 10^3/uL (0.0-1.0); MONOCYTES % (AUTO) 7.6 %; NEUTROPHILS # (AUTO) 5.1 10^3/uL (1.5-6.6); PLT - PLATELET COUNT 180 10^3/uL (130-450); RED BLOOD COUNT 4.88 10^6/uL (4.70-6.10); WHITE BLOOD COUNT 8.7 x10^3/uL (4.8-10.8)
[2019-07-28 15:57] LABS: PT - PROTHROMBIN TIME 11.5 secs (9.9-12.6)
[2019-07-28 16:00] LABS: CALCIUM 9.5 mg/dL (8.5-10.3); CREATININE 0.9 mg/dL (0.6-1.2)
--- NOTE | 2019-07-28 16:39 | Ultrasound Report ---
Reason: L UPPER extremity, hx DVT Procedure Date: 07/28/2019 Accession Number: [id number] / [id number] Procedure: US - Duplex Ext Veins Left CPT Code: Final Report FULL RESULT: EXAM: LEFT LOWER EXTREMITY VENOUS ULTRASOUND EXAM DATE: 07/28/2019 03:50 PM. CLINICAL HISTORY: L UPPER extremity, hx DVT. COMPARISON: None. TECHNIQUE: Real-time sonographic vascular imaging was performed by the senior linux administrator through the lower extremity utilizing both color-flow and Doppler spectral analysis. Multiple in store representative static images were saved for review. FINDINGS: Common Femoral Vein (CFV): Normal. CFV-GSV Junction: Normal. Profunda Femoral Vein (PFV): Normal. Femoral Vein (FV) Prox: Normal. Femoral Vein (FV) Mid: Normal. Femoral Vein (FV) Dist: Normal. Popliteal Vein: Normal. Posterior Tibial Veins: Normal. Peroneal Veins: Normal. Contralateral Side CFV: Normal. Other: None. IMPRESSION: No evidence for deep venous thrombosis in the left upper extremity. RADIA
[2019-07-28 16:49] VITALS: BP 155/78
== END 2019-07-28 17:04 | disposition home or self-care (01) ==
LOC: ED 12:46
DX: L03.114 Cellulitis of left upper limb (principal); Z86.718 Personal history of other venous thrombosis and embolism; Z95.0 Presence of cardiac pacemaker; I10 Essential (primary) hypertension; Z79.82 Long term (current) use of aspirin
CPT/HCPCS: 36415; 80048; 85025; 85610; 99283; 99284

== ENCOUNTER 2019-10-17 08:00 | Outpatient (CLI) | payer MEDICARE, BC | END 2019-10-17 23:59 | disposition home or self-care (01) | LOC: LAB.R 08:00 | PROVIDERS: ATTEND Nurse Practitioner Family | DX: L72.3 Sebaceous cyst (principal) | CPT/HCPCS: 81599; 87070; 87077; 87205 ==

== ENCOUNTER 2019-11-09 08:00 | Outpatient (CLI) | payer MEDICARE, BC ==
[2019-11-09 12:39] LABS: ALBUMIN 3.8 g/dL (3.2-5.5); ALBUMIN/GLOBULIN RATIO 1.5 (1.0-2.2); BILIRUBIN,TOTAL 0.8 mg/dL (0.2-1.0); CALCIUM 8.8 mg/dL (8.5-10.3); CREATININE 0.9 mg/dL (0.6-1.2); TOTAL PROTEIN 6.4 g/dL (6.7-8.2)
== END 2019-11-09 23:59 | disposition home or self-care (01) ==
LOC: LAB.WCP 08:00
PROVIDERS: ATTEND Internal Medicine Cardiovascular Disease
DX: I42.8 Other cardiomyopathies (principal)
CPT/HCPCS: 36415; 80053

== ENCOUNTER 2020-02-05 08:00 | Outpatient (CLI) | payer MEDICARE, BC | END 2020-02-05 23:59 | disposition home or self-care (01) | LOC: LAB.R 08:00 | PROVIDERS: ATTEND Physician Assistant | DX: R30.0 Dysuria (principal) | CPT/HCPCS: 87086; 87181 ==

== ENCOUNTER 2020-07-15 09:15 | Outpatient (CLI) | payer MEDICARE, BC ==
[2020-07-15 11:57] LABS: BASOPHILS # (AUTO) 0.1 10^3/uL (0.0-0.1); BASOPHILS % (AUTO) 0.7 %; EOSINOPHILS # (AUTO) 0.1 10^3/uL (0.0-0.7); HGB - HEMOGLOBIN 14.9 g/dL (14.0-18.0); LYMPHOCYTES # (AUTO) 2.4 10^3/uL (1.5-3.5); LYMPHOCYTES % (AUTO) 32.9 %; MEAN CORPUSCULAR HGB CONC 32.8 g/dL (32.0-36.0); MEAN CORPUSCULAR VOLUME 91.5 fL (80.0-94.0); MONOCYTES # (AUTO) 0.5 10^3/uL (0.0-1.0); MONOCYTES % (AUTO) 6.3 %; NEUTROPHILS # (AUTO) 4.3 10^3/uL (1.5-6.6); NEUTROPHILS % (AUTO) 58.8 %; PLT - PLATELET COUNT 171 10^3/uL (130-450); RED BLOOD COUNT 4.96 10^6/uL (4.70-6.10); RED CELL DISTRIBUTION WIDTH 12.7 % (12.0-15.0); WHITE BLOOD COUNT 7.3 x10^3/uL (4.8-10.8)
[2020-07-15 12:51] LABS: ALBUMIN/GLOBULIN RATIO 1.5 (1.0-2.2); ALKALINE PHOSPHATASE 117 IU/L (42-121); ALT ALANINE AMINOTRANSFERASE 14 IU/L (10-60); AST ASPARTATE AMINOTRANSFERASE 17 IU/L (10-42); BILIRUBIN,TOTAL 1.1 mg/dL (0.2-1.0); BUN - BLOOD UREA NITROGEN 16 mg/dL (6-20); CALCIUM 8.9 mg/dL (8.5-10.3); CARBON DIOXIDE - CO2 28 mmol/L (21-32); CHLORIDE 102 mmol/L (101-111); CHOL/HDL RATIO 2.8 (<5.0); CHOLESTEROL 118 mg/dL; CREATININE 0.9 mg/dL (0.6-1.2); GLUCOSE 93 mg/dL (70-100); HDL CHOLESTEROL 42 mg/dL; LDL CHOLESTEROL,CALCULATED 61 mg/dL; LDL/HDL RATIO 1.5 (<3.6); SODIUM 135 mmol/L (135-145); TOTAL PROTEIN 6.7 g/dL (6.7-8.2); VLDL CHOLESTEROL 15 mg/dL
[2020-07-15 13:31] LABS: HEMOGLOBIN A1c% 5.2 % (4.27-6.07)
== END 2020-07-15 23:59 | disposition home or self-care (01) ==
LOC: LAB.WCP 09:15
PROVIDERS: ATTEND Family Medicine
DX: I10 Essential (primary) hypertension (principal); E78.5 Hyperlipidemia, unspecified; E74.39 Other disorders of intestinal carbohydrate absorption; B17.10 Acute hepatitis C without hepatic coma; R73.9 Hyperglycemia, unspecified
CPT/HCPCS: 36415; 80053; 80061; 83036; 83721; 84443; 85025; 87522

== ENCOUNTER 2021-06-16 09:38 | Outpatient (CLI) | payer MEDICARE, BC ==
[2021-06-16 11:58] LABS: BASOPHILS # (AUTO) 0.1 10^3/uL (0.0-0.1); BASOPHILS % (AUTO) 0.9 %; EOSINOPHILS # (AUTO) 0.1 10^3/uL (0.0-0.7); EOSINOPHILS % (AUTO) 1.5 %; HCT - HEMATOCRIT 46.3 % (42.0-52.0); HGB - HEMOGLOBIN 15.1 g/dL (14.0-18.0); LYMPHOCYTES # (AUTO) 3.2 10^3/uL (1.5-3.5); LYMPHOCYTES % (AUTO) 40.2 %; MEAN CORPUSCULAR HEMOGLOBIN 30.5 pg (27.0-31.0); MEAN CORPUSCULAR HGB CONC 32.6 g/dL (32.0-36.0); MEAN CORPUSCULAR VOLUME 93.5 fL (80.0-94.0); MEAN PLATELET VOLUME 10.8 fL (7.4-11.4); MONOCYTES # (AUTO) 0.5 10^3/uL (0.0-1.0); MONOCYTES % (AUTO) 6.1 %; PLT - PLATELET COUNT 180 10^3/uL (130-450); RED BLOOD COUNT 4.95 10^6/uL (4.70-6.10); RED CELL DISTRIBUTION WIDTH 12.6 % (12.0-15.0); WHITE BLOOD COUNT 7.8 x10^3/uL (4.8-10.8)
[2021-06-16 12:22] LABS: ALBUMIN 4.2 g/dL (3.2-5.5); ALBUMIN/GLOBULIN RATIO 1.6 (1.0-2.2); ALKALINE PHOSPHATASE 102 IU/L (42-121); ALT ALANINE AMINOTRANSFERASE 15 IU/L (10-60); AST ASPARTATE AMINOTRANSFERASE 18 IU/L (10-42); BILIRUBIN,TOTAL 0.7 mg/dL (0.2-1.0); BUN - BLOOD UREA NITROGEN 15 mg/dL (6-20); CALCIUM 8.9 mg/dL (8.5-10.3); CARBON DIOXIDE - CO2 29 mmol/L (21-32); CHLORIDE 104 mmol/L (101-111); CHOLESTEROL 137 mg/dL; GFR - MDRD 71 (>89); GLUCOSE 111 mg/dL (70-100); HDL CHOLESTEROL 45 mg/dL; LDL CHOLESTEROL,CALCULATED 62 mg/dL; LDL/HDL RATIO 1.4 (<3.6); POTASSIUM 4.6 mmol/L (3.5-5.0); SODIUM 141 mmol/L (135-145); TOTAL PROTEIN 6.8 g/dL (6.7-8.2); TRIGLYCERIDES 152 mg/dL; VLDL CHOLESTEROL 30 mg/dL
[2021-06-20 16:46] LABS: HCV RNA QNT <1.18 NOT DETECTED LogIU/mL; HCV RNA QUANT RT PCR <15 NOT DETECTED IU/mL
[2021-06-21 22:02] LABS: HEPATITIS C VIRAL RNA GENOTYPE NOT DETECTED
== END 2021-06-16 09:47 ==
LOC: LAB.WCP 09:38
PROVIDERS: ATTEND Family Medicine
DX: I10 Essential (primary) hypertension (principal); B17.10 Acute hepatitis C without hepatic coma
CPT/HCPCS: 36415; 80053; 80061; 83721; 85025; 87522; 87902

== ENCOUNTER 2021-08-30 21:43 | Emergency (ER) | payer MEDICARE, BC ==
[2021-08-30 21:51] VITALS: BP 140/63
--- NOTE | 2021-08-30 22:22 | ED Physician Documentation ---
History of Present Illness - Stated complaint Stated Complaint: CONSTIPATION - Chief complaint Chief Complaint: Abd Pain - History obtained from History obtained from: Patient - Additonal information Additional information: 89yM with pmh colon cancer 28 years ago, with negative colonoscopy 6 years ago p/w constipation. patient normally has 4-5 BMs daily but has had only one small hard BM today. He feels he is unable to completely empty his bowels. denies weight loss, abd pain, rectal bleeding. does endorse irritation at the rectum. Review of Systems Constitutional: denies: Fever GI: reports: Constipation. denies: Abdominal Pain, Nausea, Vomiting : denies: Dysuria Musculoskeletal: denies: Back pain PD PAST MEDICAL HISTORY - Past Medical History Cardiovascular: Hypertension, High cholesterol, Other Respiratory: None Endocrine/Autoimmune: None GI: Ulcers, Hepatitis, Other : Benign prostate hypertrophy, Frequency Psych: None, Claustrophobia Musculoskeletal: Osteoarthritis Derm: None Other Past Medical History: bowel cancer - Past Surgical History Past Surgical History: Yes General: Bowel surgery - Present Medications Home Medications: Ambulatory Orders Medication Instructions Recorded Confirmed Omeprazole 40 mg ORAL DAILY 08/05/15 06/04/19 Tamsulosin [Flomax] 0.4 mg ORAL DAILY 08/05/15 06/04/19 Aspirin [Aspirin EC] 81 mg PO DAILYWM 12/09/17 06/04/19 Losartan [Cozaar] 50 mg PO DAILY 12/09/17 06/04/19 Lovastatin 20 mg PO QPM 12/09/17 06/04/19 Metoprolol Succinate [Toprol Xl] 25 mg PO DAILY 12/09/17 06/04/19 Furosemide [Lasix] 40 mg PO DAILY #30 tablet 12/11/17 06/04/19 Albuterol Sulf [Ventolin Hfa 1 - 2 puffs INH Q4HR PRN #1 inhaler 06/04/19 Inhaler] Azithromycin [Zithromax] 250 mg PO DAILY #6 tablet 06/04/19 predniSONE [Prednisone] 40 mg PO DAILY #10 tablet 06/04/19 cephALEXin [Keflex] 500 mg PO Q6H #28 capsule 07/28/19 Sennosides/Docusate Sodium 1 each PO QDAC PRN #30 tablet 08/30/21 [Senna-Docusate Sodium Tablet] polyethylene glycoL 3350 [Miralax] 17 gm PO DAILY PRN #1 packet 08/30/21 - Allergies Allergies/Adverse Reactions: Allergies Allergy/AdvReac Type Severity Reaction Status Date / Time Penicillins Allergy Mild Rash Verified 08/30/21 21:51 lisinopril Allergy Unknown Verified 08/30/21 21:51 venom-honey bee Allergy Rash Verified 08/30/21 21:51 [bee venom (honey bee)] banana [Banana] AdvReac nausea/bloa Verified 08/30/21 21:51 ting - Social History Does the pt smoke?: No Smoking Status: Never smoker Does the pt drink ETOH?: No Does the pt have substance abuse?: No - Immunizations Immunizations are current?: Yes - POLST Patient has POLST: No PD ED PE NORMAL - Vitals Vital signs reviewed: Yes - General General: Alert and oriented X 3, No acute distress, Well developed/nourished - HEENT HEENT: Atraumatic, PERRL, EOMI - Neck Neck: Supple, no meningeal sign - Abdomen Abdomen: Non tender, Non distended - Rectal Rectal: Other (rectal exam with brown stool in vault. patient able to pass a large BM after SHOSHANA. ) - Derm Derm: Normal color, Warm and dry, Other (mild perirectal irritation without skin breakdown) - Neuro Neuro: Alert and oriented X 3 - Psych Psych: Normal mood, Normal affect Results - Vitals Vitals: Vital Signs - 24 hr 08/30/21 21:47 Temperature 36.4 C L Heart Rate 86 Respiratory 18 Rate Blood Pressure 140/63 H O2 Saturation 97 Oxygen O2 Source Room air PD MEDICAL DECISION MAKING - ED course ED course: 89yM p/w constipation, improved s/p SHOSHANA with passage of moderate amount of brown stool. Education given about symptom management and stool softener/miralax script provided. patient will f/u with pmd for further care. Return precautions given. Departure - Departure Disposition: 01 Home, Self Care Clinical Impression: Constipation Condition: Good Instructions: ED Constipation Prescriptions: polyethylene glycoL 3350 [Miralax] 17 gm PO DAILY PRN #1 packet PRN Reason: Constipation Sennosides/Docusate Sodium [Senna-Docusate Sodium Tablet] 1 each PO QDAC PRN #30 tablet PRN Reason: Constipation Comments: You were seen in the emergency department for constipation. Please follow up with your primary doctor for further management. Return to the ED if you have significant weight loss, severe pain, blood in the stool, new or worsening symptoms or other concerns. Apply DESITIN barrier cream directly to the rectal area three times daily after completely cleaning and drying the area. This will soothe irritation and prevent further redness.
== END 2021-08-30 22:30 | disposition home or self-care (01) ==
LOC: ED 21:43
DX: K59.00 Constipation, unspecified (principal); I10 Essential (primary) hypertension; Z85.038 Personal history of other malignant neoplasm of large intestine; Z79.82 Long term (current) use of aspirin
CPT/HCPCS: 99282; 99283

== ENCOUNTER 2021-12-29 08:00 | Outpatient (CLI) | payer MEDICARE, BC | END 2021-12-29 23:59 | disposition home or self-care (01) | LOC: LAB.N 08:00 | PROVIDERS: ATTEND Nurse Practitioner Family | DX: R19.7 Diarrhea, unspecified (principal) | CPT/HCPCS: 81599; 87045; 87046 ==

== ENCOUNTER 2022-06-15 14:08 | Outpatient (CLI) | payer MEDICARE, BC ==
--- NOTE | 2022-06-15 15:30 | Ultrasound Report ---
PROCEDURE: Duplex Ext Veins Left INDICATIONS: EDEMA LEFT ARM TECHNIQUE: Real-time imaging, as well as color and pulse Doppler interrogation, were performed of the lower extr emity deep veins from the inguinal ligament to the popliteal fossa. COMPARISON: None. FINDINGS: Echogenic nonocclusive thrombus is noted within the central portion of the left internal j ugular vein. The deep veins are otherwise normally compressible, and free of intraluminal thrombus. Color and pulse Doppler demonstrate normal phasic intraluminal flow. There is normal augmentation re sponse to distal compression maneuver. IMPRESSION: 1. 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 2. No other deep vein thrombosis of the left upper extremity. Reviewed by: Princess Osei MD on 06/15/2022 3:28 PM PDT Approved by: Princess Osei MD on 06/15/2022 3:28 PM PDT Station ID: [id number]
== END 2022-06-15 14:09 | disposition home or self-care (01) ==
LOC: DI 14:08
PROVIDERS: ATTEND Physician Assistant
DX: I82.C12 Acute embolism and thrombosis of left internal jugular vein (principal)

== ENCOUNTER 2022-08-16 23:51 | Emergency (ER) | payer MEDICARE, BC ==
[2022-08-17 00:27] LABS: BASOPHILS # (AUTO) 0.1 10^3/uL (0.0-0.1); BASOPHILS % (AUTO) 0.5 %; EOSINOPHILS # (AUTO) 0.1 10^3/uL (0.0-0.7); EOSINOPHILS % (AUTO) 0.8 %; HCT - HEMATOCRIT 47.8 % (42.0-52.0); HGB - HEMOGLOBIN 15.8 g/dL (14.0-18.0); LYMPHOCYTES # (AUTO) 3.2 10^3/uL (1.5-3.5); LYMPHOCYTES % (AUTO) 27.7 %; MEAN CORPUSCULAR HEMOGLOBIN 30.3 pg (27.0-31.0); MEAN CORPUSCULAR HGB CONC 33.1 g/dL (32.0-36.0); MEAN CORPUSCULAR VOLUME 91.7 fL (80.0-94.0); MEAN PLATELET VOLUME 9.3 fL (7.4-11.4); MONOCYTES # (AUTO) 0.7 10^3/uL (0.0-1.0); MONOCYTES % (AUTO) 6.4 %; NEUTROPHILS # (AUTO) 7.5 10^3/uL (1.5-6.6); NEUTROPHILS % (AUTO) 64.3 %; PLT - PLATELET COUNT 192 10^3/uL (130-450); RED BLOOD COUNT 5.21 10^6/uL (4.70-6.10); RED CELL DISTRIBUTION WIDTH 12.7 % (12.0-15.0); WHITE BLOOD COUNT 11.7 x10^3/uL (4.8-10.8)
--- NOTE | 2022-08-17 00:33 | XRAY Report ---
PROCEDURE: Chest 1 View X-Ray INDICATIONS: Chest pain TECHNIQUE: One view of the chest was acquired. COMPARISON: Chest x-ray 06/04/2019. FINDINGS: Surgical changes and devices: Left chest wall AICD and leads appear chest x-ray similar in position. Lungs and pleura: Visualized lungs demonstrate no definite consolidation. There are a few small dens e nodules redemonstrated within the right lung base suggestive of calcified nodules secondary to old granulomatous disease.. No pleural effusions or pneumothorax. Mediastinum: Mediastinal contours appear unchanged. Heart size is mildly enlarged. Bones and chest wall: No suspicious bony lesions. Overlying soft tissues appear unremarkable. IMPRESSION: 1. No definite acute cardiopulmonary disease. Reviewed by: Jagdeep Perez MD on 08/17/2022 12:32 AM PST Approved by: Jagdeep Perez MD on 08/17/2022 12:32 AM [facility] Station ID: [id number]
[2022-08-17 00:37] LABS: ALBUMIN 3.8 g/dL (3.2-5.5); ALBUMIN/GLOBULIN RATIO 1.2 (1.0-2.2); BILIRUBIN,TOTAL 0.8 mg/dL (0.2-1.0); CALCIUM 9.4 mg/dL (8.5-10.3); POTASSIUM 3.9 mmol/L (3.5-5.0)
[2022-08-17] MEDS ORDERED: MAG HYDROX/AL HYDROX/SIMETH 30 ML UDC PO STA (01:09)
[2022-08-17] MEDS ORDERED: LIDOCAINE VISCOUS 2% 15 ML UDC MM STA (01:09)
[2022-08-17] MEDS ORDERED: ONDANSETRON 4 MG/2 ML VIAL IVP STA (02:07)
[2022-08-17] MEDS ORDERED: iohexoL-300 100 ML VIAL ONE (03:03)
[2022-08-17] MEDS ORDERED: iohexoL-300 100 ML VIAL IVP ONE (03:34)
--- NOTE | 2022-08-17 05:40 | ED Physician Documentation ---
PD HPI ABD PAIN - Stated complaint Stated Complaint: ABD PX - Chief complaint Chief Complaint: Cardiac - History obtained from History obtained from: Patient - History of Present Illness Timing - onset: Enter time (17:00) Quality: Pain Location: Epigastric Radiation: Other (does not radiate) Improved by: Other (no ameliorating factors) Worsened by: Other (no exacerbating factors) Associated symptoms: No: Fever, Nausea, Vomiting, Hematemesis, Diarrhea, Constipation, Melena, Hematochezia Similar symptoms before: Diagnosis (some similarity to episode of "bleeding ulcers" (per patient)) Recently seen: Not recently seen Review of Systems Constitutional: denies: Fever GI: reports: Abdominal Pain. denies: Abdominal Swelling, Nausea, Vomiting, Constipation, Diarrhea PD PAST MEDICAL HISTORY - Past Medical History Past Medical History: Yes Cardiovascular: Hypertension, High cholesterol, Other Respiratory: None Endocrine/Autoimmune: None GI: Ulcers, Hepatitis, Other : Benign prostate hypertrophy, Frequency Psych: None, Claustrophobia Musculoskeletal: Osteoarthritis Derm: None - Past Surgical History Past Surgical History: Yes General: Bowel surgery - Present Medications Home Medications: Ambulatory Orders Medication Instructions Recorded Confirmed Omeprazole 40 mg ORAL DAILY 08/05/15 06/04/19 Tamsulosin [Flomax] 0.4 mg ORAL DAILY 08/05/15 06/04/19 Aspirin [Aspirin EC] 81 mg PO DAILYWM 12/09/17 06/04/19 Losartan [Cozaar] 50 mg PO DAILY 12/09/17 06/04/19 Lovastatin 20 mg PO QPM 12/09/17 06/04/19 Metoprolol Succinate [Toprol Xl] 25 mg PO DAILY 12/09/17 06/04/19 Furosemide [Lasix] 40 mg PO DAILY #30 tablet 12/11/17 06/04/19 Albuterol Sulf [Ventolin Hfa 1 - 2 puffs INH Q4HR PRN #1 inhaler 06/04/19 Inhaler] Azithromycin [Zithromax] 250 mg PO DAILY #6 tablet 06/04/19 predniSONE [Prednisone] 40 mg PO DAILY #10 tablet 06/04/19 cephALEXin [Keflex] 500 mg PO Q6H #28 capsule 07/28/19 Sennosides/Docusate Sodium 1 each PO QDAC PRN #30 tablet 08/30/21 [Senna-Docusate Sodium Tablet] polyethylene glycoL 3350 [Miralax] 17 gm PO DAILY PRN #1 packet 08/30/21 Sucralfate [Carafate] 1 gm PO ACHS #60 tablet 08/17/22 - Allergies Allergies/Adverse Reactions: Allergies Allergy/AdvReac Type Severity Reaction Status Date / Time Penicillins Allergy Mild Rash Verified 08/17/22 00:09 lisinopril Allergy Unknown Verified 08/17/22 00:09 venom-honey bee Allergy Rash Verified 08/17/22 00:09 [bee venom (honey bee)] banana [Banana] AdvReac nausea/bloa Verified 08/17/22 00:09 ting - Social History Does the pt smoke?: No Smoking Status: Never smoker Does the pt drink ETOH?: No Does the pt have substance abuse?: No - Immunizations Immunizations are current?: Yes - POLST Patient has POLST: No PD ED PE NORMAL - Vitals Vital signs reviewed: Yes - General General: Alert and oriented X 3, No acute distress, Well developed/nourished - Cardiac Cardiac: RRR, No murmur - Respiratory Respiratory: No respiratory distress, Clear bilaterally - Abdomen Abdomen: Soft, Non tender, Non distended - Back Back: No CVA TTP - Derm Derm: Normal color, Warm and dry Results - Vitals Vitals: Oxygen O2 Source Room air - Labs Labs: Laboratory Tests 08/17/22 08/17/22 08/17/22 00:15 00:15 00:15 WBC 11.7 H RBC 5.21 Hgb 15.8 Hct 47.8 MCV 91.7 MCH 30.3 MCHC 33.1 RDW 12.7 Plt Count 192 MPV 9.3 Neut # (Auto) 7.5 H Lymph # (Auto) 3.2 [place] # (Auto) 0.7 Eos # (Auto) 0.1 Baso # (Auto) 0.1 Absolute Nucleated RBC 0.00 Nucleated RBC % 0.0 Sodium 140 Potassium 3.9 Chloride 102 Carbon Dioxide 30 Anion Gap 8.0 BUN 12 Creatinine 1.0 Estimated GFR (MDRD) 70 L Glucose 133 H Calcium 9.4 Total Bilirubin 0.8 AST 19 ALT 18 Alkaline Phosphatase 136 H Troponin I High Sens 8.7 Total Protein 7.0 Albumin 3.8 Globulin 3.2 Albumin/Globulin Ratio 1.2 Lipase 34 PD MEDICAL DECISION MAKING - ED course Complexity details: reviewed results, re-evaluated patient, considered differential, d/w patient Departure - Departure Disposition: 01 Home, Self Care Clinical Impression: Abdominal pain Qualifiers: Abdominal location: upper abdomen, unspecified Qualified Code(s): R10.10 - Upper abdominal pain, unspecified Condition: Good Instructions: ED Abdominal Pain Unkn Cause Male Follow-Up: Mala Payne PA [Primary Care Provider] - Prescriptions: Sucralfate [Carafate] 1 gm PO ACHS #60 tablet Comments: The cause of your symptoms is not apparent at this time. Your blood tests were without concerning result. Based on the location of symptoms , and considering the relief you had with the maalox and lidocaine (oral liquid medications), I suspect a shallow ulcer or gastritis. The CT scan of the abdomen and pelvis did not have any particularly concerning results; there were findings to suggest a small amount of inflammation of the small intestine (enteritis). There are several possible causes of enteritis, and it is typically very difficult to determine the cause if at all discernable. Most cases of enteritis involve varying degrees of abdominal pain/discomfort, sometimes associated with vomiting and/or diarrhea; most cases of enteritis resolve without specific treatment nor determined cause. If your symptoms worsen, return to the emergency department or, if not severe or concerning symptoms (such as fever, blood in the stool), follow up with your primary care provider for reevaluation. As we discussed, as you are already on an acid-blocking medication (omeprazole), I have submitted a prescription for another medication (carafate) that can help with ulcer/gastritis symptoms. This prescription has been submitted to [facility] pharmacy in [place]. Discharge Date/Time: 08/17/22 06:55
[2022-08-17 06:35] VITALS: BP 123/84
--- NOTE | 2022-08-17 10:02 | CT Report ---
PROCEDURE: ABDOMEN/PELVIS W INDICATIONS: abdominal pain, tenderness CONTRAST: 100 ml omni 300 TECHNIQUE: After the administration of IV contrast, 5 mm thick sections acquired from the diaphragms to the symp hysis. 5 mm thick coronal and sagittal reformats were acquired. For radiation dose reduction, the f ollowing was used: automated exposure control, adjustment of mA and/or kV according to patient size. COMPARISON: 07/21/2013 FINDINGS: Image quality: Excellent. ABDOMEN: Lung bases: Calcified nodules at both lung bases. No consolidations or pleural effusions. 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 Esophagus is filled with fluid. Solid organs: Liver and spleen are normal in size and enhancement. Scattered hepatic and splenic ca lcifications. Gallbladder is decompressed and appears otherwise normal. Biliary system is non dilate d. Pancreas enhances normally. No adrenal nodules. Kidneys demonstrate normal size and enhancement , without hydronephrosis. Peritoneum and bowel: The proximal stomach is partially filled with fluid. Small bowel loops are non distended but are fluid-filled. Lopez are mildly hyperenhancing without wall thickening. There is a n ormal appendix. Loops of colon are mildly distended and contain both solid and liquid stool. There is a low rectal anastomosis. Partially calcified presacral soft tissue thickening is noted, chronic. No pericolonic inflammation or wall thickening. No free fluid or air. Nodes and vessels: No retroperitoneal or mesenteric adenopathy by size criteria. Aorta is normal si ze. The inferior vena cava is decompressed. Miscellaneous: No ventral hernias. PELVIS: Genitourinary: Bladder wall thickness is normal. Normal size prostate gland. Miscellaneous: No inguinal hernias or adenopathy. Bones: No suspicious bony lesions. Chronic appearing T12 compression fracture without retropulsion o f fracture fragments. IMPRESSION: 1. Mild enhancement of the small bowel lopez without suspicious wall thickening may indicate enteriti s. 2. Colonic obstipation. 3. Surgical changes of prior low rectal anastomosis. 4. Decompressed IVC suggests low volume state. 5. Final interpretation concordant with preliminary report. Reviewed by: June Shankar MD on 08/17/2022 10:00 AM PST Approved by: June Shankar MD on 08/17/2022 10:00 AM PST Station ID: [id number]
== END 2022-08-17 06:55 | disposition home or self-care (01) ==
LOC: ED 23:51
DX: R10.10 Upper abdominal pain, unspecified (principal)
CPT/HCPCS: 36415; 71045; 74177; 80053; 83690; 84484; 85025; 93005; 96374; 99283; 99284; A9270; Q9967

== ENCOUNTER 2022-10-07 08:00 | Outpatient (CLI) | payer MEDICARE, BC ==
[2022-10-07 18:47] LABS: CALCIUM 8.9 mg/dL (8.5-10.3); CREATININE 0.9 mg/dL (0.6-1.2); POTASSIUM 4.4 mmol/L (3.5-5.0)
== END 2022-10-07 23:59 | disposition home or self-care (01) ==
LOC: LAB.N 08:00
PROVIDERS: ATTEND Internal Medicine Cardiovascular Disease
DX: I10 Essential (primary) hypertension (principal); I42.9 Cardiomyopathy, unspecified
CPT/HCPCS: 36415; 80048; 82728; 83540; 84466

== ENCOUNTER 2022-10-30 17:05 | Emergency (ER) | payer MEDICARE, BC ==
[2022-10-30 17:21] VITALS: BP 141/70
[2022-10-30] MEDS ORDERED: MOLNUPIRAVIR PREPACK PO STA (18:22)
--- NOTE | 2022-10-30 18:25 | ED Physician Documentation ---
History of Present Illness - Stated complaint Stated Complaint: C+,FEVER.PACEMAKER - Chief complaint Chief Complaint: Resp - History obtained from History obtained from: Patient, Family - History of Present Illness Timing: Today Pain level max: 0 Pain level now: 0 - Additonal information Additional information: 89-year-old male presents to the emergency department after being diagnosed with COVID today. He contacted the nurse advice line and they recommend that he come here for antiviral therapy. Patient has a mild cough. Intermittent fever. The cough is dry. No difficulty breathing. He states that he "feels pretty good". No nausea or vomiting. No abdominal pain. No chest pain. Review of Systems Throat: denies: Sore throat Cardiac: denies: Chest pain / pressure Respiratory: reports: Cough. denies: Dyspnea, Wheezing GI: denies: Abdominal Pain, Nausea, Vomiting, Diarrhea Skin: denies: Rash PD PAST MEDICAL HISTORY - Past Medical History Cardiovascular: Hypertension, High cholesterol, Other Respiratory: None Endocrine/Autoimmune: None GI: Ulcers, Hepatitis, Other : Benign prostate hypertrophy, Frequency Psych: None, Claustrophobia Musculoskeletal: Osteoarthritis Derm: None - Past Surgical History Past Surgical History: Yes General: Bowel surgery - Present Medications Home Medications: Ambulatory Orders Medication Instructions Recorded Confirmed Omeprazole 40 mg ORAL DAILY 08/05/15 06/04/19 Tamsulosin [Flomax] 0.4 mg ORAL DAILY 08/05/15 06/04/19 Aspirin [Aspirin EC] 81 mg PO DAILYWM 12/09/17 06/04/19 Losartan [Cozaar] 50 mg PO DAILY 12/09/17 06/04/19 Lovastatin 20 mg PO QPM 12/09/17 06/04/19 Metoprolol Succinate [Toprol Xl] 25 mg PO DAILY 12/09/17 06/04/19 Furosemide [Lasix] 40 mg PO DAILY #30 tablet 12/11/17 06/04/19 Albuterol Sulf [Ventolin Hfa 1 - 2 puffs INH Q4HR PRN #1 inhaler 06/04/19 Inhaler] Azithromycin [Zithromax] 250 mg PO DAILY #6 tablet 06/04/19 predniSONE [Prednisone] 40 mg PO DAILY #10 tablet 06/04/19 cephALEXin [Keflex] 500 mg PO Q6H #28 capsule 07/28/19 Sennosides/Docusate Sodium 1 each PO QDAC PRN #30 tablet 08/30/21 [Senna-Docusate Sodium Tablet] polyethylene glycoL 3350 [Miralax] 17 gm PO DAILY PRN #1 packet 08/30/21 Sucralfate [Carafate] 1 gm PO ACHS #60 tablet 08/17/22 - Allergies Allergies/Adverse Reactions: Allergies Allergy/AdvReac Type Severity Reaction Status Date / Time Penicillins Allergy Mild Rash Verified 10/30/22 17:21 lisinopril Allergy Unknown Verified 10/30/22 17:21 venom-honey bee Allergy Rash Verified 10/30/22 17:21 [bee venom (honey bee)] banana [Banana] AdvReac nausea/bloa Verified 10/30/22 17:21 ting - Social History Does the pt smoke?: No Smoking Status: Never smoker Does the pt drink ETOH?: No Does the pt have substance abuse?: No - Immunizations Immunizations are current?: Yes - POLST Patient has POLST: No PD ED PE NORMAL - Vitals Vital signs reviewed: Yes - General General: Alert and oriented X 3, No acute distress - HEENT HEENT: PERRL, Moist mucous membranes - Neck Neck: Supple, no meningeal sign - Cardiac Cardiac: RRR, Strong equal pulses - Respiratory Respiratory: No respiratory distress, Clear bilaterally - Abdomen Abdomen: Soft, Non tender, Non distended - Derm Derm: Warm and dry, No rash - Neuro Neuro: Alert and oriented X 3 - Psych Psych: Normal mood, Normal affect Results - Vitals Vitals: Vital Signs - 24 hr 10/30/22 17:16 Temperature 37.3 C Heart Rate 83 Respiratory 18 Rate Blood Pressure 141/70 H O2 Saturation 100 Oxygen O2 Source Room air PD Medical Decision Making - ED course Complexity details: considered differential, d/w patient, d/w family ED course: Patient is well-appearing, nontoxic. Afebrile. No hypoxia. No respiratory distress. He is on several medications that interact with Paxlovid, therefore placed on molnupiravir. Patient counseled regarding signs and symptoms for which I believe and urgent re-evaluation would be necessary. Patient with good understanding of and agreement to plan and is comfortable going home at this time This document was made in part using voice recognition software. While efforts are made to proofread this document, sound alike and grammatical errors may occur. Departure - Departure Disposition: 01 Home, Self Care Clinical Impression: COVID-19 Condition: Good Instructions: ED Viral Syndrome Follow-Up: your,doctor in 1 week [Other] Comments: Please follow-up with your doctor as needed for further care. Take the molnupiravir as prescribed. Please return if you worsen. Discharge Date/Time: 10/30/22 18:36
== END 2022-10-30 18:36 | disposition home or self-care (01) ==
LOC: ED 17:05
DX: U07.1 COVID-19 (principal); I10 Essential (primary) hypertension; Z79.899 Other long term (current) drug therapy; Z79.82 Long term (current) use of aspirin; Z79.51 Long term (current) use of inhaled steroids
CPT/HCPCS: 99282; 99283; J3490